=== PATIENT | male | born 1935 | race Caucasian/White ===

== ENCOUNTER → 2023-05-06 11:01 | Outpatient (REF) | payer MEDICARE, OTHER, SELFPAY | LOC: RAD 11:01 | PROVIDERS: ATTENDING PHYSICIAN Family Medicine | DX: R06.09 Other forms of dyspnea (principal); R07.89 Other chest pain | CPT/HCPCS: 71046 ==

== ENCOUNTER 2023-07-07 01:27 | Emergency (ER) | payer MEDICARE, OTHER, SELFPAY ==
[2023-07-07] VITALS (11 sets, daily range): BP systolic 115–176; BP diastolic 53–82; BMI 26.9
--- NOTE | 2023-07-07 01:45 | ED.GENMED ---
History of Present Illness
<ANIYAH Travis - Last Filed: 07/07/23 18:04>
General
Chief Complaint: Chest Pain
Source: patient
Exam Limitations: none
Time Seen by Provider: 07/07/23 01:33
Travel History
Have you had any contact with someone who has COVID-19?: No
Do you have any symptoms of coronavirus? Fever > 100 degrees, chills, cough, shortness of breath, sore throat, loss of taste or smell, muscle aches, or headache?: No
History of Present Illness
History of Present Illness:
This is a 88 year old male that comes in with c/o chest pain. State that he has had this constant pain in the middle of his chest. States that if he is laying still it is less and when he moves the pain gets worse. States that it started with
pressure in the ears and into his neck. States that it went into his left shoulder. States that he was not sure if it was form his haling or lifting things. States that he saw Dr. Johnston last week. States that on Friday night around 10pm he did take
a nitro but it did not make any different in his pain. States that he felt it got worse. States that it comes and goes and right not the pain is 3/10. States that he felt SOB with the pain and has pressure behind his ears. Denies any fever, chills,
abd pain, nausea, vomiting, diarrhea, dizziness, urinary burning.
Past History
<ANIYAH Travis - Last Filed: 07/07/23 18:04>
Past History
ED Past Medical History: Arrthythmia (Atrial fib), HTN and Hypercholesterolemia
ED Past Surgical History: Orthopedic (Left shoulder surgery) and Other (Corneal transplant, )
Social History
Tobacco: Non-smoker
Alcohol: Occasional (5 out of 7 days a week 1/2 glass of wine)
Drug: None
Personal:
Living: with family
Review of Systems
<ANIYAH Travis - Last Filed: 07/07/23 18:04>
Review of Systems
All Other Systems: ROS reviewed and negative except as documented in HPI and ROS
Constitutional: Reports no symptoms; Denies fever or chills
EENT: Reports no symptoms
Respiratory: Reports trouble breathing; Denies cough
Cardiac: Reports chest pain
ABD/GI: Reports no symptoms; Denies abdominal pain, nausea, vomiting or diarrhea
: Reports no symptoms; Denies dysuria or urgency
Musculoskeletal: Reports no symptoms
Skin: Reports no symptoms
Neurological: Reports other (pressure behind the ears); Denies dizzy
Psychiatric: Reports no symptoms
Phy Exam
<ANIYAH Travis - Last Filed: 07/07/23 18:04>
General Physical Exam
General Presentation: no apparent distress
General age: appears stated age
General Skin: warm and dry
General Habitus: elderly
General Mental: alert
General Hydration: appears well hydrated
ENT Exam
ENT Exam: TM's normal, pharynx normal and neck supple
Eye Exam
Eye Exam: EOMI
Cardiovascular Exam
Cardiovascular Exam: regular rate/rhythm, normal peripheral pulses and other (Murmur)
Pulmonary Exam
Pulmonary Exam: lungs clear, no respiratory distress, no rales, chest non tender, no crackles, no rhonchi, no wheezing and no cough
Gastrointestinal Exam
Gastrointestinal Exam: normal bowel sounds, non tender, soft, no organomegaly, no pulsatile mass and non distended
Musculoskeletal Exam
Musculoskeletal Exam: full ROM and edema (ankles nonpitting)
Skin Exam
Skin Exam: normal color, warm/dry, no rash and no petechia
Psychiatric Exam
Psychiatric Exam: normal mood/affect
Scores
<ANIYAH Travis - Last Filed: 07/07/23 18:04>
Heart Score for Chest Pain Patients
STEMI patient?: No
History: Slightly or Non-Suspicious
ECG: Normal
Age: >/= 65 years
Risk Factors: 1 or 2 Risk Factors
Troponin: </= Normal Limit
Heart Score for Chest Pain Patients: 3
Heart Score Risk: 2.5% MACE over next 6 weeks
Course
<ANIYAH Travis - Last Filed: 07/07/23 18:04>
Orders/Labs/Results
Orders:
Orders
07/07/23 01:31
Electrocardiogram (*1) Urgent
Reason for Study: Chest Pain
EKG- Treatment ONCE
07/07/23 01:44
Pantoprazole [Protonix IV] 40 mg IV NOW STA
CR Chest - 2 Views Urgent
Comment:
Reason For Exam: Chest pain
07/07/23 02:03
CMP [Comprehensive Metabolic Panel] Urgent
Complete Blood Count/With Diff Urgent
Troponin I Urgent
07/07/23 02:27
Mag Hydrox/Al Hydrox/Simeth [Maalox] 30 ml Phenobarb/Hyoscy/Atropine/Scop [] 10 ml Viscous Lidocaine 2% [Xylocaine Viscous Cup] 10 ml PO NOW
07/07/23 02:35
Mag Hydrox/Al Hydrox/Simeth [Maalox] 30 ml .ROUTE .STK-MED ONE
Phenobarb/Hyoscy/Atropine/Scop [] 10 ml .ROUTE .STK-MED ONE
Viscous Lidocaine 2% [Xylocaine Viscous Cup] 15 ml .ROUTE .STK-MED ONE
07/07/23 02:46
EKG- Treatment ONCE
07/07/23 02:55
Acetaminophen [Tylenol] 1,000 mg PO NOW STA
07/07/23 05:00
Electrocardiogram (*1) Urgent
Reason for Study: Chest Pain
Other Reason for Exam: Repeat with Tropnin
07/07/23 05:13
Troponin I Urgent
Abnormal Lab Results
07/07/23
02:03
RBC 4.61 L 10^6/uL
(4.70-6.10)
MPV 11.1 H fL
(7.4-10.4)
Absolute Neuts (auto) 7.3 H 10^3/uL
(1.4-6.5)
Absolute Monos (auto) 1.9 H 10^3/uL
(0.1-0.6)
Lymphocytes % 12.4 L %
(20.5-51.1)
Monocytes % 18.0 H %
(1.7-9.3)
Glucose 121 H mg/dl
(70-99)
07/07/23 02:03
07/07/23 02:03
Glucose nonfasting, Troponin <0.012
second Troponin <0.012
Vital Signs
Initial and Last Documented VS:
Initial Vital Signs
Pulse Resp Pulse Ox
100 24 96
07/07/23 01:35 07/07/23 01:35 07/07/23 01:35
Last Documented Vital Signs
Temp Pulse Resp BP Pulse Ox
99.4 F 61 17 121/56 97
07/07/23 01:48 07/07/23 06:30 07/07/23 06:30 07/07/23 06:30 07/07/23 06:30
<Denton Lee, - Last Filed: 07/07/23 06:24>
Orders/Labs/Results
Orders:
Orders
07/07/23 01:31
Electrocardiogram (*1) Urgent
Reason for Study: Chest Pain
EKG- Treatment ONCE
07/07/23 01:44
Pantoprazole [Protonix IV] 40 mg IV NOW STA
CR Chest - 2 Views Urgent
Comment:
Reason For Exam: Chest pain
07/07/23 02:03
CMP [Comprehensive Metabolic Panel] Urgent
Complete Blood Count/With Diff Urgent
Troponin I Urgent
07/07/23 02:27
Mag Hydrox/Al Hydrox/Simeth [Maalox] 30 ml Phenobarb/Hyoscy/Atropine/Scop [] 10 ml Viscous Lidocaine 2% [Xylocaine Viscous Cup] 10 ml PO NOW
07/07/23 02:35
Mag Hydrox/Al Hydrox/Simeth [Maalox] 30 ml .ROUTE .STK-MED ONE
Phenobarb/Hyoscy/Atropine/Scop [] 10 ml .ROUTE .STK-MED ONE
Viscous Lidocaine 2% [Xylocaine Viscous Cup] 15 ml .ROUTE .STK-MED ONE
07/07/23 02:46
EKG- Treatment ONCE
07/07/23 02:55
Acetaminophen [Tylenol] 1,000 mg PO NOW STA
07/07/23 05:00
Electrocardiogram (*1) Urgent
Reason for Study: Chest Pain
Other Reason for Exam: Repeat with Tropnin
07/07/23 05:13
Troponin I Urgent
Abnormal Lab Results
07/07/23
02:03
RBC 4.61 L 10^6/uL
(4.70-6.10)
MPV 11.1 H fL
(7.4-10.4)
Absolute Neuts (auto) 7.3 H 10^3/uL
(1.4-6.5)
Absolute Monos (auto) 1.9 H 10^3/uL
(0.1-0.6)
Lymphocytes % 12.4 L %
(20.5-51.1)
Monocytes % 18.0 H %
(1.7-9.3)
Glucose 121 H mg/dl
(70-99)
07/07/23 02:03
07/07/23 02:03
Vital Signs
Initial and Last Documented VS:
Initial Vital Signs
Pulse Resp Pulse Ox
100 24 96
07/07/23 01:35 07/07/23 01:35 07/07/23 01:35
Last Documented Vital Signs
Temp Pulse Resp BP Pulse Ox
99.4 F 61 17 121/56 97
07/07/23 01:48 07/07/23 06:30 07/07/23 06:30 07/07/23 06:30 07/07/23 06:30
<ANIYAH Travis - Last Filed: 07/07/23 18:04>
MDM/Problems Addressed
Differential Diagnosis Includes:
GERD ,Coronary syndrome, Musculoskeletal pain
MDM/Problems Addressed:
This is a 88 year old male that comes in with c/o mid sternal chest pain. States that his pain started at 6:30-7pm. States that his pain gets worse when he moves and is less when he is still. States that he had pressure in the inner ear that went
into the neck and left shoulder. States that he took a nitro at 10pm and this did not help his pain but felt that is made it worse.
Will check labs, chest x-ray and given IV Protonix.
Back into see patient. Explained that his Troponin and chest X-ray are aisha. Patient states that the pain increases with movement and that nothing he has had has helped the discomfort. States that he moved a very heavy generator. Will give patient
Tylenol as on Eliquis. Repeat Troponin at 5am.
Chronic conditions affecting care:
NA
Acute Exacerbation and/or Progression of Chronic Illness:
NA
<ANIYAH Travis - Last Filed: 07/07/23 18:04>
*Radiology
Radiology exam reviewed: preliminary read by ED provider (Chest- Negative for active disease)
*Pulse Oximetry
Patient hypoxic: no
*EKG
Interpreted by ED Provider?: Yes
Heart Rate: 103
Rate: tachycardiac
Rhythm: sinus
[place]: normal axis
QRS Pattern: normal QRS
Ischemia: no ischemia
*Clinical Administrative Coordinator Interpretation
Rate: tachycardiac
Heart Rate: 101
Rhythm: sinus tachycardia
*Critical Care Note
Total Time (30-74mins, 75-104mins- exclusive of procedures): Not Applicable
ED Attending Note
<ANIYAH Travis - Last Filed: 07/07/23 18:04>
-
Portions of this chart may have been created with voice recognition software.� Occasional wrong word or��sound alike� substitutions may have occurred due to the inherent limitations of voice recognition software.
<Denton Lee DO - Last Filed: 07/07/23 06:24>
ED Attending Note
Patient seen and examined by attending physician: Yes
I performed the substantive portion of visit, reviewed & personally made and approve the management plan that is documented in note by myself or LEO.: Yes
ED Attending Note:
88-year-old male seen in conjunction with Deanna the nurse practitioner. He is resting comfortably on the bed. He has had no chest pain since he was signed out to me. 2 troponins negative. EKG normal. He does follow-up with Dr. Johnston. Patient
to be discharged. He has no further questions at this time. Patient was seen in conjunction with the nurse practitioner. I have reviewed and agree with the history and treatment plan presented. On my independent physical exam, patient is awake,
alert, and oriented x3
Discharge Plan
Departure
Patient Disposition: Home (Routine Discharge)
Date of Disposition: 07/07/23
Time of Disposition: 06:24
Patient with high blood pressure during this ER visit?: Yes
Condition: Good
Covid-19: Not Applicable
Discharge Problem:
Chest pain
Instructions: Chest Pain CBC Follow Up
Prescriptions:
No Action
aspirin 81 MG tablet,delayed release (DR/EC)
81 mg PO QPM
tamsulosin 0.4 MG capsule
0.4 mg PO QPM
latanoprost 1 DROP drops
1 drp BOTH EYES HS
atorvastatin 40 MG tablet
40 mg PO QPM
Patient Comments:
sildenafil [Viagra] 100 MG tablet
100 mg PO DAILYPRN PRN (Reason: DIRECTED)
metronidazole [MetroCream] 1 APPLIC cream
1 applic topical BIDPRN PRN (Reason: ROSACEA)
lisinopril 5 MG tablet
5 mg PO QPM
Patient Comments:
ketoconazole 1 APPLIC cream
1 applic TP DAILY
finasteride 5 MG tablet
5 mg PO QPM
Patient Comments:
TAKE 1 TABLET EVERY DAY
brimonidine-timolol [Combigan] 1 DROP drops
1 drp BOTH EYES BID
psyllium husk (aspartame) [Metamucil Fiber Singles] 1 PACKET powder in packet
1 packet PO DAILY
loteprednol etabonate [Lotemax] 5 GM drops,gel
1 drp BOTH EYES DAILY
[place]-3 Fatty Acids/Fish Oil
2 - 4 capsules PO DAILY
apixaban [Eliquis] 5 MG tablet
5 mg PO BID Qty: 30 0RF
Interventions
Interventions:
*Risk Screen - Suicide Last Done: 07/07/23 01:57
*General Assessment Last Done: 07/07/23 01:57
*Neglect/Abuse Screening Last Done: 07/07/23 01:57
ED- Fall Risk Assessment Last Done: 07/07/23 01:57
*ED COVID-19 Vaccine History Last Done: 07/07/23 01:57
*Nursing Disposition Last Done: 07/07/23 07:02
ED- Cardiac Assessment Last Done: 07/07/23 01:57
Discharge Date and Time
Discharge Date/Time: 07/07/23 07:03
Print Language: ALBANIAN
[2023-07-07 02:13] LABS: % Basophils 0.3 % (0-2); % Eosinophils 0.2 % (0-6); % Immature Granulocytes 0.3 % (0-0.5); % Lymphocytes 12.4 % (20.5-51.1); % Neutrophils 68.8 % (42.2-75.2); Absolute Lymphocytes 1.3 10^3/uL (1.2-3.4); Absolute Monocytes 1.9 10^3/uL (0.1-0.6); Absolute Neutrophils 7.3 10^3/uL (1.4-6.5); Hematocrit 39.9 % (39.0-52.0); Hemoglobin 13.7 g/dL (13.0-18.0); Mean Corp Hgb Conc. 34.3 g/dL (33.0-37.0); Mean Corpuscular Hgb 29.7 pg (27.0-31.0); Mean Corpuscular Volume 86.6 fL (80.0-94.0); Mean Platelet Volume 11.1 fL (7.4-10.4); Nucleated Red Blood Cells % 0 % (-); Platelet Count 182 10^3/uL (130-400); Red Blood Cell Count 4.61 10^6/uL (4.70-6.10); Red Cell Dist. Width 13.4 % (11.5-14.5); White Blood Cell Count 10.5 10^3/uL (4.8-10.8)
[2023-07-07 02:27] LABS: ALT (SGPT) 20 U/L (0-50); AST (SGOT) 30 U/L (17-59); Albumin 4.4 g/dl (3.5-5.0); Alkaline Phosphatase 105 U/L (38-126); Blood Urea Nitrogen 19 mg/dl (9-20); Calcium 9.2 mg/dl (8.4-10.2); Carbon Dioxide 27 mmol/L (22-30); Chloride 101 mmol/L (98-107); Estimated Creatinine Clearance 60 ml/min; Glucose 121 mg/dl (70-99); Potassium 4.1 mmol/L (3.5-5.1); Sodium 139 mmol/L (135-145); Total Bilirubin 0.9 mg/dl (0.2-1.3); Total Protein 7.5 g/dl (6.3-8.2); eGFR > 60.00
[2023-07-07] MEDS: PROTONIX IV 40 MG IV (02:28)
[2023-07-07 02:38] LABS: Troponin I < 0.012 ng/ml
[2023-07-07] MEDS: MAALOX 50 PO (02:38)
[2023-07-07] MEDS: TYLENOL 1000 MG PO (03:35)
[2023-07-07 05:44] LABS: Troponin I < 0.012 ng/ml
== END 2023-07-07 07:03 | disposition home or self-care (01) ==
LOC: EMR 01:27
PROVIDERS: Clinical Nurse Specialist Family Health; EMERGENCY PHYSICIAN Student in an Organized Health Care Education/Training Program; FAMILY PHYSICIAN Family Medicine
DX: R07.89 Other chest pain (principal); I48.91 Unspecified atrial fibrillation; I10 Essential (primary) hypertension; E78.00 Pure hypercholesterolemia, unspecified; Z79.01 Long term (current) use of anticoagulants
CPT/HCPCS: 99283; 96374; 71046; 80053; 84484; 85025; 93005

== ENCOUNTER → 2023-07-21 11:13 | Outpatient (REF) | payer MEDICARE, OTHER, SELFPAY | LOC: RAD 11:13 | PROVIDERS: ATTENDING PHYSICIAN Physician Assistant | DX: R05.1 Acute cough (principal) | CPT/HCPCS: 71046 ==

== ENCOUNTER 2023-07-26 11:38 | Inpatient (IN) | payer MEDICARE, OTHER, SELFPAY ==
[2023-07-26] VITALS (28 sets, daily range): BP systolic 101–152; BP diastolic 53–83; BMI 27.9; BMI 27.1
--- NOTE | 2023-07-26 07:07 | ED.GENMED ---
History of Present Illness
<ANIYAH Guillen - Last Filed: 07/28/23 17:00>
General
Chief Complaint: Swelling
Source: patient
Time Seen by Provider: 07/26/23 07:07
Nursing documentation reviewed up to this point in time: agreed with
Travel History
Have you had any contact with someone who has COVID-19?: No
Do you have any symptoms of coronavirus? Fever > 100 degrees, chills, cough, shortness of breath, sore throat, loss of taste or smell, muscle aches, or headache?: No
History of Present Illness
History of Present Illness:
Patient is an 88-year-old male with history of A-fib on Eliquis hypertension hyperlipidemia presents to the ER for evaluation patient reports for the past several weeks he has had lower extremity swelling and shortness of breath which has gotten
worse over the past several days. He could not sleep last night. He also complains of generalized joint pain over the past several weeks which is gotten progressively worse. He denies any actual fevers but has been taking Tylenol and will wake up
in a sweat. He reports he can barely walk because of the joint pain sometimes he cannot lift his arms. Presently he has swelling of his left index finger with slight redness. He denies any associated chest pain, rash. He has had a cough. He has
been taking Tylenol for pain.
He is on Eliquis and has not missed a dose.
Patient was seen here in the ER 07/07/2023 for chest pain with movement.
Past History
<ANIYAH Guillen - Last Filed: 07/28/23 17:00>
Past History
ED Past Medical History: Arrthythmia (Atrial fib), HTN and Hypercholesterolemia
ED Past Surgical History: Orthopedic (Left shoulder surgery) and Other (Corneal transplant, )
Social History
Tobacco: Non-smoker
Alcohol: Occasional (5 out of 7 days a week 1/2 glass of wine)
Drug: None
Personal:
Living: with family
Review of Systems
<ANIYAH Guillen - Last Filed: 07/28/23 17:00>
Review of Systems
Allergies reviewed?: Yes
All Other Systems: ROS reviewed and negative except as documented in HPI and ROS
Constitutional: Reports chills
EENT: Reports no symptoms
Respiratory: Reports cough and trouble breathing
Cardiac: Denies chest pain, palpitations or syncope
ABD/GI: Reports no symptoms
: Reports no symptoms
Musculoskeletal: Reports other (joint pain )
Skin: Reports no symptoms
Neurological: Reports no symptoms
Psychiatric: Reports no symptoms
Phy Exam
<ANIYAH Guillen - Last Filed: 07/28/23 17:00>
General Physical Exam
General Presentation: no apparent distress
General age: appears stated age
General Skin: warm and dry
General Habitus: elderly
General Mental: alert
General Hydration: appears well hydrated
ENT Exam
ENT Exam: EOMI, neck supple and other
Eye Exam
Eye Exam: PERRL, EOMI and other (chronic blepharitis (redness to upper/lower eyelids ) )
Cardiovascular Exam
Cardiovascular Exam: tachycardia
Pulmonary Exam
Pulmonary Exam: lungs clear and no respiratory distress
Neurological Exam
Neurological Exam: alert and oriented x3
Musculoskeletal Exam
Musculoskeletal Exam: other ( b/l l/e swelling pitting right slightly greater then left; left index finger is swollen)
Skin Exam
Skin Exam: normal color and warm/dry
Psychiatric Exam
Psychiatric Exam: normal mood/affect
Scores
<ANIYAH Guillen - Last Filed: 07/28/23 17:00>
Heart Failure Risk
Heart Failure Risk Score: Not Applicable
Course
<Tammy Chowdhury, ANIYAH - Last Filed: 07/28/23 17:00>
Orders/Labs/Results
Orders:
Orders
07/26/23 07:04
Electrocardiogram (*1) Urgent
Reason for Study: Chest Pain
EKG- Treatment ONCE
CXR2 [CR Chest - 2 Views ] Urgent
Comment:
Reason For Exam: cough with SOB
07/26/23 07:08
C-Reactive Protein Urgent
Comment: ADD ON
COVID-19 Antigen Urgent
Source: Nasal Swab
Complete Blood Count/With Diff Urgent
Comprehensive Metabolic Panel Urgent
Erythrocyte Sed Rate Urgent
Comment: ADD ON
Lyme Progressive Urgent
Comment: ADD ON
NT-proBNP Urgent
Troponin I Urgent
Influenza A+B Rapid Molecular Urgent
CASANDRA Source: Nasal Swab
Specimen Description:
07/26/23 07:18
Add On- LAB Urgent
Tests Added?: crp,sed rate, lyme
07/26/23 08:12
Echo 2D MMode Color/Doppler Urgent
Reason for Study: short of breath, new dilated cardiomyopathy
07/26/23 08:20
Azithromycin 500 mg/250 ml [Zithromax Infusion] 500 mg in 250 ml IV NOW
CefTRIAXone [Rocephin] 1,000 mg IV NOW STA
07/26/23 08:22
Lactic Acid Q4H
Comment: CANCEL 2nd LACTIC ACID IF 1st LACTIC ACID IS LESS THAN 2
Blood Culture Q30M
CASANDRA Source: Blood/Venous
Specimen Description:
Blood Culture Q30M
CASANDRA Source: Blood/Venous
Specimen Description:
07/26/23 10:14
[employer] Cytology Routine
Date Specimen was Collected: 07/26/23
Time Specimen was Collected: 10:15
Source: Pericardial Fluid
Clinical Impression: echo
07/26/23 10:20
Acid Fast Culture & Smear Routine
CASANDRA Source: Pericardial Fluid
Specimen Description:
Date Specimen was Collected: 07/26/23
Time Specimen was Collected: 10:13
Fluid Culture with Gram Stain Routine
CASANDRA Source: Pericardial Fluid
Specimen Description:
Date Specimen was Collected: 07/26/23
Time Specimen was Collected: 10:13
07/26/23 10:23
Heparin 1000 Units/500 ml [Heparin] 1,000 units in 500 ml .ROUTE .STK-MED
Heparin Sodium,Porcine/Ns/Pf [Heparin 2000 Units/1000 ml] 2,000 unit in 1,000 ml .ROUTE .STK-MED
Lidocaine HCl/Pf [Xylocaine-Mpf 1% Vial] 200 mg .ROUTE .STK-MED ONE
07/26/23 10:26
Body Fluid Cell Count Routine
What is the Body Fluid: pericardial fluid
Date Specimen was Collected: 07/26/23
Time Specimen was Collected: 10:23
Body Fluid Glucose Routine
Fluid Source: Other
Other Source: pericardial
Date Specimen was Collected: 07/26/23
Time Specimen was Collected: 10:23
Body Fluid Hematocrit Routine
What is the Body Fluid: pericardial fluid
Date Specimen was Collected: 07/26/23
Time Specimen was Collected: 10:23
Body Fluid LDH Routine
Fluid Source: Other
Other Source: pericardial
Date Specimen was Collected: 07/26/23
Time Specimen was Collected: 10:23
Body Fluid Protein Routine
Fluid Source: Other
Other Source: pericardial
Date Specimen was Collected: 07/26/23
Time Specimen was Collected: 10:23
Fungus Culture Routine
CASANDRA Source: Pericardial Fluid
Specimen Description:
Date Specimen was Collected: 07/26/23
Time Specimen was Collected: 10:23
Fungus Smear Routine
CASANDRA Source: Pericardial Fluid
Specimen Description:
Date Specimen was Collected: 07/26/23
Time Specimen was Collected: 10:23
07/26/23 10:33
Fentanyl Citrate/Pf [Sublimaze] 100 mcg .ROUTE .STK-MED ONE
Midazolam HCl [Versed] 2 mg .ROUTE .STK-MED ONE
07/26/23 10:41
Echo Follow-up Study Stat
Reason for Study: PERICARDIAL EFFUSION
Cardiology Consult: Black Craig
07/26/23 14:42
Blood Culture Routine
CASANDRA Source: Blood/Venous
Specimen Description:
Abnormal Lab Results
07/26/23
07:08
WBC 11.6 H 10^3/uL
(4.8-10.8)
RBC 3.79 L 10^6/uL
(4.70-6.10)
Hgb 11.2 L g/dL
(13.0-18.0)
Hct 33.7 L %
(39.0-52.0)
MPV 10.5 H fL
(7.4-10.4)
Abs Immat Gran (auto) 0.1 H 10^3/uL
(0-0.05)
Absolute Neuts (auto) 8.8 H 10^3/uL
(1.4-6.5)
Absolute Lymphs (auto) 0.9 L 10^3/uL
(1.2-3.4)
Absolute Monos (auto) 1.8 H 10^3/uL
(0.1-0.6)
Neutrophils % 75.7 H %
(42.2-75.2)
Lymphocytes % 7.6 L %
(20.5-51.1)
Monocytes % 15.7 H %
(1.7-9.3)
ESR 75 H mm/hour
(0-20)
Sodium 134 L mmol/L
(135-145)
Glucose 133 H mg/dl
(70-99)
Calcium 8.1 L mg/dl
(8.4-10.2)
AST 126 H U/L
(17-59)
ALT 153 H U/L
(0-50)
Alkaline Phosphatase 239 H U/L
(38-126)
C-Reactive Protein 167.90 H mg/L
(0.0-10.00)
Albumin 3.3 L g/dl
(3.5-5.0)
07/26/23 07:08
07/26/23 07:08
Vital Signs
Initial and Last Documented VS:
Initial Vital Signs
Temp Pulse Resp BP Pulse Ox
99.3 F 112 22 148/80 96
07/26/23 06:41 07/26/23 06:41 07/26/23 06:41 07/26/23 06:41 07/26/23 06:41
Last Documented Vital Signs
Temp Pulse Resp BP Pulse Ox
98.6 F 99 18 145/70 98
07/28/23 15:58 07/28/23 09:00 07/28/23 11:09 07/28/23 08:11 07/28/23 11:09
<Maik Nova, DO - Last Filed: 07/26/23 08:28>
Orders/Labs/Results
Orders:
Orders
07/26/23 07:04
Electrocardiogram (*1) Urgent
Reason for Study: Chest Pain
EKG- Treatment ONCE
CXR2 [CR Chest - 2 Views ] Urgent
Comment:
Reason For Exam: cough with SOB
07/26/23 07:08
C-Reactive Protein Urgent
Comment: ADD ON
COVID-19 Antigen Urgent
Source: Nasal Swab
Complete Blood Count/With Diff Urgent
Comprehensive Metabolic Panel Urgent
Erythrocyte Sed Rate Urgent
Comment: ADD ON
Lyme Progressive Urgent
Comment: ADD ON
NT-proBNP Urgent
Troponin I Urgent
Influenza A+B Rapid Molecular Urgent
CASANDRA Source: Nasal Swab
Specimen Description:
07/26/23 07:18
Add On- LAB Urgent
Tests Added?: crp,sed rate, lyme
07/26/23 08:12
Echo 2D MMode Color/Doppler Urgent
Reason for Study: short of breath, new dilated cardiomyopathy
07/26/23 08:20
Azithromycin 500 mg/250 ml [Zithromax Infusion] 500 mg in 250 ml IV NOW
CefTRIAXone [Rocephin] 1,000 mg IV NOW STA
07/26/23 08:22
Lactic Acid Q4H
Comment: CANCEL 2nd LACTIC ACID IF 1st LACTIC ACID IS LESS THAN 2
Blood Culture Q30M
CASANDRA Source: Blood/Venous
Specimen Description:
Blood Culture Q30M
CASANDRA Source: Blood/Venous
Specimen Description:
07/26/23 10:14
[employer] Cytology Routine
Date Specimen was Collected: 07/26/23
Time Specimen was Collected: 10:15
Source: Pericardial Fluid
Clinical Impression: echo
07/26/23 10:20
Acid Fast Culture & Smear Routine
CASANDRA Source: Pericardial Fluid
Specimen Description:
Date Specimen was Collected: 07/26/23
Time Specimen was Collected: 10:13
Fluid Culture with Gram Stain Routine
CASANDRA Source: Pericardial Fluid
Specimen Description:
Date Specimen was Collected: 07/26/23
Time Specimen was Collected: 10:13
07/26/23 10:23
Heparin 1000 Units/500 ml [Heparin] 1,000 units in 500 ml .ROUTE .STK-MED
Heparin Sodium,Porcine/Ns/Pf [Heparin 2000 Units/1000 ml] 2,000 unit in 1,000 ml .ROUTE .STK-MED
Lidocaine HCl/Pf [Xylocaine-Mpf 1% Vial] 200 mg .ROUTE .STK-MED ONE
07/26/23 10:26
Body Fluid Cell Count Routine
What is the Body Fluid: pericardial fluid
Date Specimen was Collected: 07/26/23
Time Specimen was Collected: 10:23
Body Fluid Glucose Routine
Fluid Source: Other
Other Source: pericardial
Date Specimen was Collected: 07/26/23
Time Specimen was Collected: 10:23
Body Fluid Hematocrit Routine
What is the Body Fluid: pericardial fluid
Date Specimen was Collected: 07/26/23
Time Specimen was Collected: 10:23
Body Fluid LDH Routine
Fluid Source: Other
Other Source: pericardial
Date Specimen was Collected: 07/26/23
Time Specimen was Collected: 10:23
Body Fluid Protein Routine
Fluid Source: Other
Other Source: pericardial
Date Specimen was Collected: 07/26/23
Time Specimen was Collected: 10:23
Fungus Culture Routine
CASANDRA Source: Pericardial Fluid
Specimen Description:
Date Specimen was Collected: 07/26/23
Time Specimen was Collected: 10:23
Fungus Smear Routine
CASANDRA Source: Pericardial Fluid
Specimen Description:
Date Specimen was Collected: 07/26/23
Time Specimen was Collected: 10:23
07/26/23 10:33
Fentanyl Citrate/Pf [Sublimaze] 100 mcg .ROUTE .STK-MED ONE
Midazolam HCl [Versed] 2 mg .ROUTE .STK-MED ONE
07/26/23 10:41
Echo Follow-up Study Stat
Reason for Study: PERICARDIAL EFFUSION
Cardiology Consult: Black Craig
07/26/23 14:42
Blood Culture Routine
CASANDRA Source: Blood/Venous
Specimen Description:
Abnormal Lab Results
07/26/23
07:08
WBC 11.6 H 10^3/uL
(4.8-10.8)
RBC 3.79 L 10^6/uL
(4.70-6.10)
Hgb 11.2 L g/dL
(13.0-18.0)
Hct 33.7 L %
(39.0-52.0)
MPV 10.5 H fL
(7.4-10.4)
Abs Immat Gran (auto) 0.1 H 10^3/uL
(0-0.05)
Absolute Neuts (auto) 8.8 H 10^3/uL
(1.4-6.5)
Absolute Lymphs (auto) 0.9 L 10^3/uL
(1.2-3.4)
Absolute Monos (auto) 1.8 H 10^3/uL
(0.1-0.6)
Neutrophils % 75.7 H %
(42.2-75.2)
Lymphocytes % 7.6 L %
(20.5-51.1)
Monocytes % 15.7 H %
(1.7-9.3)
ESR 75 H mm/hour
(0-20)
Sodium 134 L mmol/L
(135-145)
Glucose 133 H mg/dl
(70-99)
Calcium 8.1 L mg/dl
(8.4-10.2)
AST 126 H U/L
(17-59)
ALT 153 H U/L
(0-50)
Alkaline Phosphatase 239 H U/L
(38-126)
C-Reactive Protein 167.90 H mg/L
(0.0-10.00)
Albumin 3.3 L g/dl
(3.5-5.0)
07/26/23 07:08
07/26/23 07:08
Vital Signs
Initial and Last Documented VS:
Initial Vital Signs
Temp Pulse Resp BP Pulse Ox
99.3 F 112 22 148/80 96
07/26/23 06:41 07/26/23 06:41 07/26/23 06:41 07/26/23 06:41 07/26/23 06:41
Last Documented Vital Signs
Temp Pulse Resp BP Pulse Ox
98.6 F 99 18 145/70 98
07/28/23 15:58 07/28/23 09:00 07/28/23 11:09 07/28/23 08:11 07/28/23 11:09
<ANIYAH Guillen - Last Filed: 07/28/23 17:00>
MDM/Problems Addressed
Differential Diagnosis Includes:
not limited to: CHF viral syndrome, pneumonia
MDM/Problems Addressed:
Patient presented for complaints of generalized joint pain, for the past several weeks getting worse along with worsening shortness of breath and lower extremity swelling. He has not had any fevers at home but has had chills. He was seen here
July 06 for chest pain and that was found to be muscular and because of his generalized joint pain he has been taking 3 g of Tylenol every 8 hours. He still complains of joint pain. He presented to the ER today because of worsening symptoms over
the past several days including both shortness of breath and generalized joint pain electrically swelling. He has had cough.
On arrival he is in no acute distress. Patient does feel short of breath however he is in no acute distress he is tachycardic however pulse ox between 93 to 94%. Lungs cta. Patient is afebrile his white count is minimally elevated 11.6 with normal
platelets. Sodium 134 normal kidney function patient's LFTs are elevated however bilirubin is normal this is new from prior ED visit July 06.
With joint pain Lyme test was ordered. Patient was found to be COVID-negative. Chest x-ray reviewed with ED attending does show a new moderate size left lower lobe airspace suggesting pneumonia along with pleural effusion and moderate
cardiomegaly. Pt was eval by ED attending who notified cardiology of pt's new effusion/Cardiomegaly . d/c echo with cardiology .
<ANIYAH Guillen - Last Filed: 07/28/23 17:00>
*Radiology
Radiology exam reviewed: radiology read reviewed
*Pulse Oximetry
Patient hypoxic: no
*EKG
Interpreted by ED Provider?: Yes
Heart Rate: 112
Rate: tachycardiac
Rhythm: sinus tachycardia
Ischemia: non-specific ST changes
*Critical Care Note
Total Time (30-74mins, 75-104mins- exclusive of procedures): Not Applicable
<Maik Nova DO - Last Filed: 07/26/23 08:28>
Patient Management
Discussion with other providers: Hospitalist and Yard Coordinator (Dr. Alvarez, cardiology)
ED Attending Note
<ANIYAH Guillen - Last Filed: 07/28/23 17:00>
-
Portions of this chart may have been created with voice recognition software.� Occasional wrong word or��sound alike� substitutions may have occurred due to the inherent limitations of voice recognition software.
<Maik Nova DO - Last Filed: 07/26/23 08:28>
ED Attending Note
Patient seen and examined by attending physician: Yes
ED Attending Note:
I have reviewed and agree with history and treatment plan by Tammy Chowdhury. My exam revealed 88-year-old male with tachycardia,, clear lungs, bilateral tibial edema, with 4+ distal pulses in all extremities. Chest x-ray concerning for new onset
and increasing cardiomegaly with left pleural effusion versus consolidation. Discussed with Dr. Alvarez, cardiology, who is currently seeing patient in ED. Echocardiogram ordered with cardiology. Will treat for pneumonia and admit to hospitalist
for further evaluation.
Discharge Plan
Departure
Patient Disposition: Admit
Date of Disposition: 07/26/23
Time of Disposition: 08:28
Admit to: ICU
Admit to doctor: hospitalist
Presentation/result/management discussed w/ accepting MD/DO: Hospitalist
Patient with high blood pressure during this ER visit?: Yes
Condition: Fair
Covid-19: Negative COVID-19
Discharge Problem:
Acute pericardial effusion, Pneumonia, Arthralgia, Elevated LFTs
Interventions
Interventions:
*General Assessment Last Done: 07/26/23 07:17
*Neglect/Abuse Screening Last Done: 07/26/23 07:17
ED- Fall Risk Assessment Last Done: 07/26/23 07:17
*Nursing Disposition Last Done: 07/26/23 10:19
ED- Cardiac Assessment Last Done: 07/26/23 07:17
ED- Pulmonary Assessment Last Done: 07/26/23 07:17
ED-Skin Assessment Last Done: 07/26/23 07:17
Discharge Date and Time
Discharge Date/Time: 07/26/23 10:19
[2023-07-26 07:19] LABS: % Basophils 0.3 % (0-2); % Eosinophils 0.2 % (0-6); % Immature Granulocytes 0.5 % (0-0.5); % Lymphocytes 7.6 % (20.5-51.1); % Monocytes 15.7 % (1.7-9.3); % Neutrophils 75.7 % (42.2-75.2); Absolute Immature Granulocytes 0.1 10^3/uL (0-0.05); Absolute Lymphocytes 0.9 10^3/uL (1.2-3.4); Absolute Monocytes 1.8 10^3/uL (0.1-0.6); Absolute Neutrophils 8.8 10^3/uL (1.4-6.5); Hematocrit 33.7 % (39.0-52.0); Hemoglobin 11.2 g/dL (13.0-18.0); Mean Corp Hgb Conc. 33.2 g/dL (33.0-37.0); Mean Corpuscular Hgb 29.6 pg (27.0-31.0); Mean Corpuscular Volume 88.9 fL (80.0-94.0); Mean Platelet Volume 10.5 fL (7.4-10.4); Nucleated Red Blood Cells % 0 % (-); Platelet Count 271 10^3/uL (130-400); Red Blood Cell Count 3.79 10^6/uL (4.70-6.10); Red Cell Dist. Width 13.5 % (11.5-14.5); White Blood Cell Count 11.6 10^3/uL (4.8-10.8)
[2023-07-26 07:29] LABS: ALT (SGPT) 153 U/L (0-50); AST (SGOT) 126 U/L (17-59); Albumin 3.3 g/dl (3.5-5.0); Alkaline Phosphatase 239 U/L (38-126); Blood Urea Nitrogen 19 mg/dl (9-20); Calcium 8.1 mg/dl (8.4-10.2); Carbon Dioxide 29 mmol/L (22-30); Chloride 101 mmol/L (98-107); Estimated Creatinine Clearance -5 ml/min; Glucose 133 mg/dl (70-99); Potassium 3.7 mmol/L (3.5-5.1); Sodium 134 mmol/L (135-145); Total Bilirubin 0.8 mg/dl (0.2-1.3); Total Protein 6.5 g/dl (6.3-8.2); eGFR > 60.00
[2023-07-26 07:30] LABS: COVID-19 Antigen Negative (Negative)
[2023-07-26 07:40] LABS: NT-proBNP 953 pg/ml; Troponin I < 0.012 ng/ml
--- NOTE | 2023-07-26 07:45 | EDRN ---
this RN noticed that the pts Sp02 dropped from 96% to 92% on RA, this RN notified Tammy Chowdhury NP and this RN placed the pt on 2L NC, Sp02 came up to 94%, will continue to monitor the pt closely
[2023-07-26 08:01] LABS: Erythrocyte Sed Rate 75 mm/hour (0-20)
[2023-07-26] MEDS: ZITHROMAX INFUSION 250 IV (08:29)
[2023-07-26] MEDS: ROCEPHIN 1000 MG IV (08:30)
[2023-07-26 09:03] LABS: Lactic Acid 0.9 mmol/L (0.7-2.0)
--- NOTE | 2023-07-26 09:15 | EDRN ---
the pt pressed the call lubin and this RN entered the pts room, the pt stated to this RN that he needed to use the bathroom, the pt states that it hurt'all over his body to walk', this RN offered the pt a urinal however the pt stated to this RN, 'I
don't want to use the urinal however i don't think i can make it to the bathroom, is there any way that you can find me a commode so i can go to the bathroom' this RN brought a commode into the pts room, the pt was able to stand and pivot onto the
commode with this RN's assistance, the pt is now resting in stretcher in the lowest position, side rails up x2, call lubin within reach, HOB elevated, will continue to monitor the pt closely
--- NOTE | 2023-07-26 10:06 | EDRN ---
the pt is currently resting in stretcher in the lowest position, side rails up x2, call lubin within reach, HOB elevated, Sinus Tachycardic in the 110's, palpable pulses, b/l lower extremity edema, the pt is currently on 2L NC Sp02 94%, Dr. Craig
currently at the pts bedside speaking with the pt and the pts
--- NOTE | 2023-07-26 10:14 | EDRN ---
Dr. Craig currently at the pts bedside obtaining consent
--- NOTE | 2023-07-26 10:18 | EDRN ---
Cristal ZHAO from collaborating supervising physician called and verbal report was given
--- NOTE | 2023-07-26 11:02 | CON.CAR ---
Addendum entered and electronically signed by Itz Alvarez MD 07/27/23 09:39:
Patient was seen and evaluated personally. I agree with the note, physical examination and plan of care as documented below.
Patient was evaluated in the ER. He was noted to be in cardiogenic stress. An emergent bedside echo was done that showed pericardial effusion. A proper echo was done to evaluate the possibility of tamponade. Echo done in the ER confirmed large
pericardial effusion along with early signs of tamponade even though the blood pressure was stable. Patient was taken emergently to the [facility] and Dr. Oliveira was called for pericardial drain placement.
Anticoagulation is on hold at this time. Patient was on Eliquis 5 mg twice a day. Etiology of pericardial effusion is unclear and could be spontaneous bleed into the pericardium exasperated by the Eliquis on board.
Original Note:
Consultation
Consultation Request
Date/Time Consultation Requested: 07/25/2026 09:30
Date/Time Consultation Performed: 07/26/2023 09:50
Requesting Provider: Dr. Nova
Performing Provider: ANIYAH Iniguez for Dr. Alvarez
Medical History
-
Chief Complaint: Shortness of breath
History of Present Illness:
Terrell Purcell is a 88-year-old male (known to Dr. Johnston, his primary softball coach), with paroxysmal atrial fibrillation (on apixaban), chronic stable angina, hypertension, symptomatic orthostatic hypotension, mixed hyperlipidemia, mild aortic
stenosis, and CKD3a who presented to the emergency department with shortness of breath. It has gotten worse over the past several days. He also endorses lower extremity swelling. He has been having joint pain for several weeks that has gotten
worse. He states the joint pain is limiting his mobility. Chest x-ray was ordered and he was found to have cardiomegaly in addition to left lower lobe pneumonia with an adjacent small left parapneumonic pleural effusion. EKG with sinus
tachycardia and R wave amplitude has decreased. Bedside [id number] ultrasound showing pericardial effusion. Formal echocardiogram with evidence of tamponade.
Past Medical History
Past Medical History: Arrhythmias (Paroxysmal atrial fibrillation [on apixaban]), CAD, HTN and Hypercholesterolemia
Past Surgical History: Orthopedic
Social History
Tobacco: Non-Smoker
Alcohol: Occasional
Drug: None
Personal:
Living: With Family
Employment: Retired
Family History
Family History: Reviewed & Not Pertinent
Allergies / Home Medications
Allergy/AdvReac Type Severity Reaction Status Date / Time
Sulfa (Sulfonamide Allergy red spots Verified 07/26/23 06:41
Antibiotics)
�Medication �Instructions �Recorded �Confirmed �Type
aspirin 81 mg tablet,delayed 81 mg PO QPM 04/21/14 07/26/23 History
release
tamsulosin 0.4 mg capsule 0.4 mg PO QPM 04/21/14 07/26/23 History
Alleghany-3 Fatty Acids/Fish Oil 2 - 4 capsules PO DAILY 10/21/16 07/26/23 History
apixaban 5 mg tablet (Eliquis) 5 mg PO BID #30 tabs 10/21/16 07/26/23 Rx
atorvastatin 40 mg tablet 40 mg PO QPM 10/21/16 07/26/23 History
brimonidine 0.2 %-timolol 0.5 % 1 drp BOTH EYES BID 10/21/16 07/26/23 History
eye drops (Combigan)
finasteride 5 mg tablet 5 mg PO QPM 10/21/16 07/26/23 History
ketoconazole 2 % topical cream 1 applic TP DAILY FEET 10/21/16 07/26/23 History
latanoprost 0.005 % eye drops 1 drp BOTH EYES HS 10/21/16 07/26/23 History
lisinopril 5 mg tablet 5 mg PO QPM 10/21/16 07/26/23 History
loteprednol etabonate 0.5 % eye 1 drp BOTH EYES DAILY 10/21/16 07/26/23 History
gel drops (Lotemax)
metronidazole 0.75 % topical cream 1 applic topical BIDPRN PRN ROSACEA 10/21/16 07/26/23 History
(MetroCream)
psyllium husk (aspartame) 3.4 gram 1 packet PO DAILY 10/21/16 07/26/23 History
oral powder packet (Metamucil
Fiber Singles)
sildenafil 100 mg tablet (Viagra) 100 mg PO DAILYPRN PRN DIRECTED 10/21/16 07/26/23 History
Review of Systems
-
History Source: Patient
All other systems: Negative unless noted
Musculoskeletal: Joint Pain (all joints) and Edema (B/L LE)
Skin: Other (redness to right index finger)
Physical Exam
Vital Signs
Temp Pulse Resp BP Pulse Ox
98.2 F 110 16 144/76 92
07/26/23 09:48 07/26/23 10:15 07/26/23 09:48 07/26/23 10:00 07/26/23 10:00
Lab Results
07/26/23 07:08
07/26/23 07:08
Troponin I < 0.012 ng/ml 07/26/23 07:08
Qfe-U-Hhiujzepdzr Pept 953 pg/ml 07/26/23 07:08
Physical Exam
General: Well Developed, Well Nourished, No Apparent Distress and Pain
HEENT: Normocephalic, Anicteric and Moist Mucous Membranes
Respiratory: Clear and Non Labored Respirations
Cardiac: S1/S2, Regular Rhythm and Peripheral Edema (+1 non pitting LE edema)
Breast: Deferred by me
GI: Soft, Non Tender, Non Distended and Normal Bowel Sounds
Rectal: Deferred by Provider
Genito-urinary: No Costovertebral Tender
Musculoskeletal: No Clubbing and No Cyanosis
Skin: Warm and Dry
Neuro: AO x 3
Hematologic/Lymphatic: No Lymphadenopathy
Psych: Calm
Impression / Plan
-
Pericardial effusion with tamponade
-CRP 167, ESR 75, with transaminitis and mild leukocytosis
-Pericardial drain placed with 610mL maroon-colored fluid
-Cytology is pending
PNA
-COVID-19 negative, influenza negative
-Endorses systemic joint pain, blood cultures pending
-Antimicrobial therapy per primary
Joint pain, worsening
Transaminitis, per primary
Paroxysmal atrial fibrillation
-Currently sinus tachycardia, he normally has symptomatic atrial fibrillation
-Beta-uzma has been avoided for concern for potential bradycardia, as needed propranolol 20 mg every 6 hours when has fast AF
-Oral Anticoagulation: Apixaban 5 mg twice daily on hold in the setting pericardial drain
-[id number]: score at least 4 (HTN, age 75 or more, Vascular disease)
Hypertension, follow, patient has orthostatic lightheadedness, goal blood pressure <140/90
Aortic stenosis, mild, peak/mean gradients 27/50 mmHg, CHAD 1.7 cm, no aortic regurgitation, this will be followed the outpatient setting
Chronic stable angina, chest pain-free
Mixed hyperlipidemia, on atorvastatin
Data Reviewed
-
Medical Tests (Nuc Med, Echo etc): Report Reviewed by me (Echo as above)
Labs: Labs Reviewed by me
Old Records: Reviewed
--- NOTE | 2023-07-26 11:25 | ITS.CL.PN ---
[facility] [employer] [facility] - Procedure Note
Procedure
Procedure Note:
PERICARDIOCENTESIS PROCEDURE NOTE
Date of procedure: 07/26/2023
Referring Physician/Provider: Itz Alvarez M.D.
Indication: Large pericardial effusion, early pericardial tamponade.
Procedure:
After obtaining consent, the patient was brought to the cardiac yard laborer and placed in a recumbent position. Echocardiogram was used to ascertain the best approach vector. A(n) apical approach was selected. The fifth intercostal space along the mid
clavicular line was anesthetized with 1% lidocaine. Under ultrasound guidance, a micropuncture needle was advanced into the pericardial space under negative pressure. After obtaining flashback of pericardial fluid, the micropuncture wire was
advanced into the pericardial space and the needle was removed. The micropuncture sheath was advanced over the wire and the wire and dilator were removed. Agitated saline was injected through the micropuncture sheath confirming its presence in the
pericardial space on echocardiography. A 0.035 inch J-wire was advanced through the micropuncture sheath and into the pericardial space. The micropuncture sheath was removed and a 6 Kuwaiti sheath was advanced over the 0.035 inch wire. A pigtail
catheter was advanced through the sheath over the J-wire and placed in the pericardial space. The J-wire was removed. The pericardial pressure was measured. A sufficient sample of pericardial fluid was removed and sent for laboratory testing
(hemoglobin, hematocrit, white blood cell count, LDH, albumin, total protein, cytology and culture). The pigtail catheter was then connected to a Vacutainer and the pericardial space was evacuated. Serial echocardiography confirmed reduction in the
pericardial effusion from severe to trace. All evidence of tamponade was removed. The 6 Kuwaiti sheath was sutured into place. The pigtail catheter was likewise sutured into place then curled around the sheath and covered by a sterile Tegaderm.
Repeat pericardial pressure was measured, confirming significant reduction. The pigtail catheter was then connected to a ILANA drain to suction. The patient reported significant improvement in their shortness of breath.
Procedure Details:
Approach: Apical
Sheath/Drain size (Fr) 6
Pericardial Volume (mL): 610
Effusion type: Burgundy.
Non-effusion blood loss (mL): None.
Pericardial pressures
Pre drainage (mmHg): 24
Post drainage (mmHg): 11
Radiation dose:
Dose (mGy): 5.68
DAP (Gy*cm2): 0.4451
Fluoroscopy Time (minutes): 0.2
Conclusions:
1. Successful placement of a 6 Kuwaiti pericardial drain via apical approach.
2. Pericardial fluid has been sent for laboratory analysis.
Copy to: Itz Alvarez M.D., Jonas Henao M.D., Chadd Johnston M.D.
Black Craig DO, FACC, FACP
[2023-07-26 12:03] LABS: Body Fluid Hematocrit 4.6 %
[2023-07-26 12:06] LABS: Body Fluid Glucose 104 mg/dl; Body Fluid Protein 6.3 g/dl
[2023-07-26] MEDS: MORPHINE SULFATE 1 MG IV (12:07)
--- NOTE | 2023-07-26 12:22 | PTCARENOTE ---
Received pt from the CCL into 2250, sinus tachycardia on tele w HR 107, bp 142/67, pox 98-99% on RA, + peripheral pulses, +2 edema to bilateral lower extremities. Pericardial drain maintained to left CW w red drainage noted. Lungs diminished,
coughing and deep breathing encouraged. +bs, pt denies nausea/vomiting. Pt is DTV. PIV to right AC flushes easily. Pt does c/o 4/10 chest discomfort, Kayli Samano aware, morphine administered as ordered. Admission interview questions completed,
medication list updated. Plan of care reviewed and questions encouraged.
--- NOTE | 2023-07-26 12:28 | HPS.HSE ---
Family Physician
-
Family Physician: Jonas Henao
Chief Complaint
-
shortness of breath
History of Present Illness
88-year-old male was presenting from home with complaint of shortness of breath. Patient states for the past 2 weeks of generalized weakness and shortness of breath. States in the last 48 hours dyspnea on exertion worsened significantly. Also
stated of some chest discomfort. In the last 24 hours patient noticed diffuse shortness of breath and unable to walk greater than 20 feet. Also states of severe joint pains. States of diffuse joint pains bilaterally. Also states of joint
swelling which is new in onset. Patient was recently in the ER for complaint of chest pain. Patient troponin chest x-ray was normal and patient with improvement in symptoms he was discharged home. Patient also stated he followed up with primary
care doctor who stated patient could have viral disease. No sick contact. States of cough. No productive sputum. Patient came into the ER and underwent imaging with chest x-ray with severe effusions and cardiomegaly. Patient was eval by
cardiology and stat echocardiogram was performed which showed pericardial effusion with tamponade phenomenon. Patient was seen post pericardiocentesis and states remains with chest discomfort and shortness of breath. Received morphine earlier.
Medical History
Past Medical History
Past Medical History: Reports Other
Additional Past Medical History:
Paroxysmal atrial fibrillation
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
BPH
CAD
Primary hypertension
Hyperlipidemia
Past Surgical History: Reports Other
Additional Past Surgical History:
Cataract surgery
Left shoulder surgery
Social History
Tobacco: Non-smoker
Alcohol: Occasional (3-4 times a week glass of wine.)
Living: With Family
Family History
Family History: Not pertinent
Allergies / Home Medications
Allergies reflects when Allergies were last updated in [facility].
Home Medications with original date entered in [facility]
Allergy/Medication List:
Allergies
Allergy/AdvReac Type Severity Reaction Status Date / Time
Sulfa (Sulfonamide Allergy red spots Verified 07/26/23 06:41
Antibiotics)
Home Medications
aspirin 81 mg tablet,delayed release 81 mg PO QPM 04/21/14
tamsulosin 0.4 mg capsule 0.4 mg PO QPM 04/21/14
Cyril-3 Fatty Acids/Fish Oil 2 - 4 capsules PO DAILY 10/21/16
apixaban 5 mg tablet (Eliquis) 5 mg PO BID #30 tabs 10/21/16
atorvastatin 40 mg tablet 40 mg PO QPM 10/21/16
brimonidine 0.2 %-timolol 0.5 % eye drops (Combigan) 1 drp BOTH EYES BID 10/21/16
finasteride 5 mg tablet 5 mg PO QPM 10/21/16
ketoconazole 2 % topical cream 1 applic TP DAILY FEET 10/21/16
latanoprost 0.005 % eye drops 1 drp BOTH EYES HS 10/21/16
lisinopril 5 mg tablet 5 mg PO QPM 10/21/16
loteprednol etabonate 0.5 % eye gel drops (Lotemax) 1 drp BOTH EYES DAILY 10/21/16
metronidazole 0.75 % topical cream (MetroCream) 1 applic topical BIDPRN PRN ROSACEA 10/21/16
psyllium husk (aspartame) 3.4 gram oral powder packet (Metamucil Fiber Singles) 1 packet PO DAILY 10/21/16
sildenafil 100 mg tablet (Viagra) 100 mg PO DAILYPRN PRN DIRECTED 10/21/16
Review of Systems
-
History Source: Patient
A 12 point ROS was completed and negative except as noted: Yes
Physical Exam
Vital Signs
Vital Signs
Temp Pulse Resp BP Pulse Ox
98.2 F 110 16 144/76 92
07/26/23 09:48 07/26/23 10:15 07/26/23 09:48 07/26/23 10:00 07/26/23 10:00
Physical Exam
General: Well Developed, Well Nourished and No Apparent Distress
HEENT: NormoCephalic, Moist mucous membranes and Atraumatic
Respiratory: Clear
Cardiac: S1/S2, Regular Rhythm and Other (Pericardial drain noted); No Murmur or Rub
GI: Soft, Non Tender, Non Distended and Normal Bowel Sounds; No Organomegaly
Rectal: Deferred by Provider
Musculoskeletal: No Clubbing, No Cyanosis, Edema, Left Lower Extremity and Edema, Right Lower Extremity
Skin: Warm; No Rash
Neuro: Awake, AO x 3, No Motor Deficits and Nonfocal/grossly intact
Psych: Calm
Laboratory Results
-
07/26/23 07:08
07/26/23 07:08
Laboratory Results
Lactic Acid Cancelled 07/26/23 12:15
Total Bilirubin 0.8 mg/dl (0.2-1.3) 07/26/23 07:08
AST 126 U/L (17-59) H 07/26/23 07:08
ALT 153 U/L (0-50) H 07/26/23 07:08
Alkaline Phosphatase 239 U/L (38-126) H 07/26/23 07:08
Troponin I < 0.012 ng/ml 07/26/23 07:08
Impression/Plan
-
#Acute pericardial effusion/tamponade phenomenon
Status post pericardiocentesis with 610 cc of fluid was removed by Dr. Craig
Pericardial drain placed
Follow-up on the studies.
Lyme studies pending
ESR and CRP elevated to be noted
Blood cultures in lab
Lactic acid normal
Troponin checked negative x 2
Follow-up on the fluid study count, culture Gram stain and fungal studies and cytology
Also can do CT chest to evaluate for pleural effusion in the next 24 hours also
Monitor oxygenation vital signs closely
Avoid hypotension
Pain control
Cardiology recs
#Left lower lobe community-acquired pneumonia
Start patient on ceftriaxone and doxycycline (Lyme studies pending)
Sputum sample
Check strep pneumoniae antigen
Paroxysmal atrial fibrillation
Eliquis on hold. Restart pending cardiology
Monitor on telemetry
CAD
Aortic stenosis
Continue with statin
Aspirin and Eliquis on hold
Continue with lisinopril
BPH
Continue with home meds
DVT ppx-
Discussed with patient spouse at bedside in detail
I spent a total of 78 minutes with the patient or on the floor. More than 50% of this time involved counseling and coordination of care.
[2023-07-26 12:52] LABS: Body Fluid LDH 3350 U/L
[2023-07-26 13:57] LABS: Body Fluid WBC 522 /CUMM
--- NOTE | 2023-07-26 14:51 | PTCARENOTE ---
BC and urine culture sent. Pt's own eye drops sent to pharmacy to be verifiied. Pt tolerated lunch tray. States pain is slightly improved s/p morphine dose.
[2023-07-26 14:58] LABS: Body Fluid Second Tech BP
[2023-07-26 15:07] LABS: Body Fluid Granulocytes 41 %; Body Fluid Lymphocytes 32 %
[2023-07-26 15:15] LABS: Body Fluid Macrophages 27 %
[2023-07-26] MEDS: PROSCAR PO (17:20)
[2023-07-26] MEDS: FLOMAX 0.400000000000000022 MG PO (17:24)
[2023-07-26] MEDS: ZESTRIL 5 MG PO (17:24)
[2023-07-26] MEDS: LIPITOR 40 MG PO (17:24)
[2023-07-26] MEDS: TYLENOL 650 MG PO (20:09)
[2023-07-26] MEDS: COMBIGAN EYE DROPS 1 DROP BOTH EYES (20:10)
[2023-07-26] MEDS: XALATAN OPHTHALMIC SOLUTION 1 DROP BOTH EYES (22:39)
[2023-07-27] VITALS (7 sets, daily range): BP systolic 108–144; BP diastolic 57–69; BMI 25.9
[2023-07-27 04:21] LABS: % Basophils 0.3 % (0-2); % Eosinophils 0.4 % (0-6); % Immature Granulocytes 0.6 % (0-0.5); % Lymphocytes 11.4 % (20.5-51.1); % Monocytes 17.1 % (1.7-9.3); % Neutrophils 70.2 % (42.2-75.2); Absolute Immature Granulocytes 0.1 10^3/uL (0-0.05); Absolute Lymphocytes 1.2 10^3/uL (1.2-3.4); Absolute Monocytes 1.8 10^3/uL (0.1-0.6); Absolute Neutrophils 7.6 10^3/uL (1.4-6.5); Hematocrit 37.6 % (39.0-52.0); Hemoglobin 12.6 g/dL (13.0-18.0); Mean Corp Hgb Conc. 33.5 g/dL (33.0-37.0); Mean Corpuscular Hgb 29.2 pg (27.0-31.0); Mean Corpuscular Volume 87.2 fL (80.0-94.0); Mean Platelet Volume 10.4 fL (7.4-10.4); Nucleated Red Blood Cells % 0 % (-); Platelet Count 317 10^3/uL (130-400); Red Blood Cell Count 4.31 10^6/uL (4.70-6.10); Red Cell Dist. Width 13.5 % (11.5-14.5); White Blood Cell Count 10.7 10^3/uL (4.8-10.8)
[2023-07-27 04:43] LABS: ALT (SGPT) 117 U/L (0-50); AST (SGOT) 82 U/L (17-59); Albumin 3.4 g/dl (3.5-5.0); Alkaline Phosphatase 217 U/L (38-126); Blood Urea Nitrogen 17 mg/dl (9-20); Calcium 8.7 mg/dl (8.4-10.2); Carbon Dioxide 29 mmol/L (22-30); Chloride 101 mmol/L (98-107); Estimated Creatinine Clearance 61 ml/min; Glucose 131 mg/dl (70-99); Potassium 4.1 mmol/L (3.5-5.1); Sodium 137 mmol/L (135-145); Total Bilirubin 0.8 mg/dl (0.2-1.3); Total Protein 6.7 g/dl (6.3-8.2); eGFR > 60.00
--- NOTE | 2023-07-27 05:07 | PTCARENOTE ---
No output visualized from pericardial drain this shift. Pt. complained of pain at drain site at beginning of shift for which Tylenol was very effective. Some MONTIEL assessed when getting OOB to use BSC, lungs diminished, pulse ox 97% on 2L O2. NSR
on the monitor.
[2023-07-27 05:08] LABS: TSH Reflex To Free T4 1.64 uIU/ml (0.47-4.68)
--- NOTE | 2023-07-27 08:17 | W.PN.HOSP.TC ---
Today's Communication/Plan
-
colchine/aspirin
cont abx
ppi added
drain per cards
Assessment / Plan
Assessment / Plan
General: Well Developed, Well Nourished and No Apparent Distress
HEENT: NormoCephalic, Moist mucous membranes and Atraumatic
Respiratory: Clear
Cardiac: S1/S2, Regular Rhythm and Other (Pericardial drain noted); No Murmur or Rub
GI: Soft, Non Tender, Non Distended and Normal Bowel Sounds; No Organomegaly
Rectal: Deferred by Provider
Musculoskeletal: No Clubbing, No Cyanosis, Edema, Left Lower Extremity and Edema, Right Lower Extremity
Skin: Warm; No Rash
Neuro: Awake, AO x 3, No Motor Deficits and Nonfocal/grossly intact
Psych: Calm
#Acute pericardial effusion/tamponade phenomenon/Pericarditis
Status post pericardiocentesis with 610 cc of fluid was removed by Dr. Craig
Pericardial drain placed
Follow-up on the studies.
Lyme studies pending
ESR and CRP elevated to be noted
Blood cultures in lab
Lactic acid normal
Troponin checked negative x 2
TSH wnl.
RF factor and POLINA pending
Fluid culture in lab/pending
fungal pending
cytology pending
Can consider CT chest/US chest to assess pleural effusion if with sob
Monitor oxygenation vital signs closely
Avoid hypotension
Pain control
Started on colchine 0.6mg BID and aspirin high dose with taper regimen. PPI added.
Cardiology recs
#Left lower lobe community-acquired pneumonia
Start patient on ceftriaxone and doxycycline (Lyme studies pending)
Sputum sample
Check strep pneumoniae antigen-negative.
Paroxysmal atrial fibrillation
Eliquis on hold. Restart pending cardiology
Monitor on telemetry
CAD
Aortic stenosis
Continue with statin
Aspirin and Eliquis on hold
Continue with lisinopril
BPH
Continue with home meds
DVT ppx-scds for now
Anticipated Discharge: > 48 hours
Subjective/Interval History
-
Date of Service: July 27, 2023
Feeling better compared to yesterday
Objective Data
-
Labs:
Laboratory Results
07/27/23
03:43
WBC 10.7
Hgb 12.6 L
Hct 37.6 L
Plt Count 317
Sodium 137
Potassium 4.1
Chloride 101
Carbon Dioxide 29
BUN 17
Creatinine 0.9
Glucose 131 H
Calcium 8.7
Total Bilirubin 0.8
AST 82 H
ALT 117 H
Alkaline Phosphatase 217 H
Vital Signs:
Vital Signs
Temp Pulse Resp BP Pulse Ox
98.6 F 80 20 122/64 97
07/27/23 07:48 07/27/23 06:00 07/27/23 07:48 07/27/23 03:16 07/27/23 07:48
I&O
07/26/23 07/27/23 07/28/23
06:59 06:59 06:59
Intake Total 680 / 680
Output Total 1375 / 1375
Balance -695 / -695
[2023-07-27] MEDS: COMBIGAN EYE DROPS 1 DROP BOTH EYES ×2 (08:54→20:00)
--- NOTE | 2023-07-27 08:59 | W.PN.CD ---
Today's Communication / Plan
-
Start colchicine 0.6 mg BID x 2 months.
Start high dose ASA taper.
Monitor drain output.
When output is < 0.5-1 mL/hour x 12-24 hours, we will repeat echo to reassess effusion. If no effusion remains, we will pull the drain.
RF/POLINA/Lyme pending.
ABX for LLL CAP per primary team.
Impression / Plan
-
Impression/Plan: 88 y/o male with mild aortic stenosis, HLD, PAF on apixaban admitted with large pericardial effusion and early tamponade.
#Pericarditis with pericardial effusion and tamponade
-New diagnosis.
-CRP 167, ESR 75, with transaminitis and mild leukocytosis.
-Pericardial drain placed with 610mL burgundy-colored fluid.
-Cytology is pending.
-Continue colchicine 0.6 mg BID x 2 months
-High dose ASA taper:
-ASA 975 TID x 3 days.
-ASA 650 TID x 3 days.
-ASA 325 TID x 3 days.
-ASA 325 BID x 3 days.
-ASA 325 daily x 3 days.
-ASA 81 mg daily indefinitely (known angina).
-When drainage is < 0.5-1 mL/hour x 12-24 hours, repeat echo to ensure that the drain has not clotted and that no effusion remains.
-If echo is reassuring at that time, we will d/c drain.
#LLL PNA
-COVID-19 negative, influenza negative, Strep pneumo AG negative.
-BCx pending.
-Empiric antibiotics.
#Joint pain, worsening
-Relatively new diagnosis.
-Elevated inflammatory markers. Difficult to discern if related in the context of pericarditis.
-Agree with checking Lyme titres.
-DDx will also include autoimmune processes (late in life for RA/SLE, no malar rash, etc). Given his age, polymyalgia rheumatica is a real possibility.
-RF/POLINA pending.
-Management per primary.
#Transaminitis
-Acute.
-Improving without intervention. I suspect this was congestive hepatopathy from the tamponade.
#Paroxysmal atrial fibrillation
-Currently in NSR.
-Beta-uzma has been avoided for concern for potential bradycardia, as needed propranolol 20 mg every 6 hours when has fast AF.
-[id number]: score at least 4 (HTN, age 75 or more, Vascular disease).
-Oral Anticoagulation: Apixaban 5 mg twice daily on hold in the setting pericardial drain.
#Hypertension
-Chronic, stable.
-Continue home lisinopril 5 mg daily.
#Aortic stenosis
-Mild, peak/mean gradients 27/50 mmHg, CHAD 1.7 cm, no aortic regurgitation.
-Outpatient follow up.
#Chronic stable angina
-Chronic, stable.
-Chest pain-free
#Mixed hyperlipidemia
-Chronic, stable.
-Continue atorvastatin.
Subjective/Interval History:
Drain placed via apical approach yesterday for 610 mL of burgundy/bloody fluid.
Echo showed resolution of the effusion.
Patient developed residual pain and was given morphine/APAP with good effect.
Weight is down 3.8 kg.
BP remains normal and HR has fallen into normal range.
He remains on supplemental oxygen.
CXR suggests CAP. The patient has been started on ceftriaxone and azithromycin.
Doxycycline started for possible Lyme disease (diffuse joint pain).
Transaminitis is improving.
DATA:
CXR, 07/26/2023:
IMPRESSION:
1. New moderate size left lower lobe airspace consolidation suggesting LEFT LOWER LOBE PNEUMONIA with an adjacent small left parapneumonic pleural effusion.
2. Minimal right pleural effusion and mild right lower lobe airspace opacity.
3. Moderate cardiomegaly suggesting a dilated cardiomyopathy.
Pericardiocentesis, 07/26/2023:
Conclusions:
1. Successful placement of a 6 Azeri pericardial drain via apical approach.
2. Pericardial fluid has been sent for laboratory analysis.
TTE, 07/26/2023:
CONCLUSIONS
Limited, intraprocedural study.
Normal left ventricular systolic function.
Normal right ventricular size and function.
Normal atria.
Large pericardial effusion. Following pericardiocentesis, no pericardial
effusion has resolved.
Ascites is observed.
Compared to prior study from earlier today, the pericardial effusion is
redemonstrated and resolved after pericardiocentesis.
Physical Exam
Vital Signs/Labs
Vital Signs
Temp Pulse Resp BP Pulse Ox
37.0 C 85 20 122/57 97
07/27/23 07:48 07/27/23 08:00 07/27/23 07:48 07/27/23 07:49 07/27/23 07:48
07/25/23 07/26/23 07/27/23
11:59 11:59 11:59
Actual Weight 85.7 kg 81.9 kg
07/27/23 03:43
07/27/23 03:43
07/26/23
07:08
Pym-T-Yisijfnxril Pept 953
LAB Results
07/26/23
07:08
Troponin I < 0.012
Physical Exam
Constitutional: No acute distress and Comfortable
EENT: Anicteric and Moist mucous membranes
Cardiovascular: Rhythm & rate is regular, Pedal edema is absent, JVD pressure is normal, S1S2 is normal and Murmur/rub/gallop absent
Respiratory: Respiratory effort normal, Lungs clear to auscul., Wheeze Absent, Crackles Absent and Rhonchi Absent
GI: Soft, Distention absent, Flat, Non tender and Normal bowel sounds
Neuro/Psych: AO x 3
Other: Cardiac Device Site (Apical drain site is C/D/I.)
Data Reviewed
-
Date of Service: July 27, 2023
Medical Decision Making: Reviewed Test Results, Independent Historian Assessment and Test Interpretation
EKG: Tracing Personally Visualized and interpreted and Report Reviewed by me
Echo: Tracing Personally Visualized and interpreted and Report Reviewed by me
X-Ray/CT/US/MRI/NUC/PET: Image Personally Visualized and interpreted and Report Reviewed by me
Medical Tests (PFT, Pathology etc): Image Personally Visualized and interpreted and Report Reviewed by me
Labs: Labs Reviewed by me
[2023-07-27] MEDS: NON-FORMULARY ITEM 1 DROP BOTH EYES (09:00)
[2023-07-27] MEDS: METAMUCIL, KONSYL 1 PACKET PO (09:01)
[2023-07-27] MEDS: ROCEPHIN 1000 MG IV (09:01)
[2023-07-27] MEDS: NIZORAL 2% CREAM 1 APPLIC TOPICAL (09:01)
[2023-07-27] MEDS: STERILE WATER FOR INJECTION 10 ML IV (09:02)
[2023-07-27] MEDS: VIBRAMYCIN 100 MG PO ×2 (09:02→20:00)
[2023-07-27] MEDS: PROTONIX 40 MG PO (10:50)
[2023-07-27] MEDS: COLCHICINE 0.599999999999999978 MG PO ×2 (10:50→19:59)
[2023-07-27] MEDS: ASPIRIN 975 MG PO (10:50)
--- NOTE | 2023-07-27 11:00 | PTCARENOTE ---
Assumed care of pt from night RN. Pt received awake and alert, Ox3. VSS, CM shows NSR with murmur, POX 96% on RA. Pt assisted to BR and to chair. He denies any pain or discomfort. ASA and Colchicine given as per MAY. Pericardial drain intact
to right front thorax, minimal bldy drg noted. Family at bedside.
--- NOTE | 2023-07-27 15:41 | PTCARENOTE ---
Assisted pt to BR where he had a moderate bloody stool. Dr Craig made aware, all further doses of ASA placed on hold.
[2023-07-27] MEDS: ASPIRIN PO (16:46)
[2023-07-27] MEDS: PROSCAR 5 MG PO (17:59)
[2023-07-27] MEDS: FLOMAX 0.400000000000000022 MG PO (17:59)
[2023-07-27] MEDS: LIPITOR 40 MG PO (17:59)
[2023-07-27] MEDS: ZESTRIL 5 MG PO (17:59)
[2023-07-27] MEDS: XALATAN OPHTHALMIC SOLUTION 1 DROP BOTH EYES (22:17)
[2023-07-27] MEDS: MELATONIN 5 MG PO (22:17)
[2023-07-28] VITALS (8 sets, daily range): BP systolic 123–178; BP diastolic 55–84; BMI 26.1
[2023-07-28 03:26] LABS: % Basophils 0.3 % (0-2); % Eosinophils 0.9 % (0-6); % Immature Granulocytes 0.4 % (0-0.5); % Lymphocytes 9.4 % (20.5-51.1); % Monocytes 14.8 % (1.7-9.3); % Neutrophils 74.2 % (42.2-75.2); Absolute Eosinophils 0.1 10^3/uL (0-0.7); Absolute Monocytes 1.6 10^3/uL (0.1-0.6); Absolute Neutrophils 7.9 10^3/uL (1.4-6.5); Hematocrit 33.8 % (39.0-52.0); Hemoglobin 11.2 g/dL (13.0-18.0); Mean Corp Hgb Conc. 33.1 g/dL (33.0-37.0); Mean Corpuscular Hgb 29.6 pg (27.0-31.0); Mean Corpuscular Volume 89.2 fL (80.0-94.0); Mean Platelet Volume 10.5 fL (7.4-10.4); Nucleated Red Blood Cells % 0 % (-); Platelet Count 293 10^3/uL (130-400); Red Blood Cell Count 3.79 10^6/uL (4.70-6.10); Red Cell Dist. Width 13.5 % (11.5-14.5); White Blood Cell Count 10.6 10^3/uL (4.8-10.8)
[2023-07-28] MEDS: TYLENOL 650 MG PO ×2 (03:28→16:18)
[2023-07-28 04:02] LABS: ALT (SGPT) 100 U/L (0-50); AST (SGOT) 76 U/L (17-59); Albumin 2.8 g/dl (3.5-5.0); Alkaline Phosphatase 177 U/L (38-126); Blood Urea Nitrogen 22 mg/dl (9-20); Calcium 8.2 mg/dl (8.4-10.2); Carbon Dioxide 24 mmol/L (22-30); Chloride 103 mmol/L (98-107); Estimated Creatinine Clearance 68 ml/min; Glucose 130 mg/dl (70-99); Potassium 4.5 mmol/L (3.5-5.1); Sodium 133 mmol/L (135-145); Total Bilirubin 0.5 mg/dl (0.2-1.3); Total Protein 5.8 g/dl (6.3-8.2); eGFR > 60.00
[2023-07-28] MEDS: NON-FORMULARY ITEM 1 DROP BOTH EYES (08:31)
[2023-07-28] MEDS: COMBIGAN EYE DROPS 1 DROP BOTH EYES ×2 (08:34→20:40)
[2023-07-28] MEDS: ROCEPHIN 1000 MG IV (08:36)
[2023-07-28] MEDS: STERILE WATER FOR INJECTION 10 ML IV (08:37)
[2023-07-28] MEDS: METAMUCIL, KONSYL 1 PACKET PO (08:47)
[2023-07-28] MEDS: VIBRAMYCIN 100 MG PO ×2 (08:48→20:36)
[2023-07-28] MEDS: PROTONIX 40 MG PO (08:49)
[2023-07-28] MEDS: COLCHICINE 0.599999999999999978 MG PO ×2 (08:49→20:36)
--- NOTE | 2023-07-28 10:05 | W.PN.CD ---
Today's Communication / Plan
-
Hold aspirin.
Monitor H/H given hematochezia.
Colace to soften stool.
Limited echo this morning.
If effusion is still gone, we will pull drain.
ABX to PO?
Impression / Plan
-
Impression/Plan: 88 y/o male with mild aortic stenosis, HLD, PAF on apixaban admitted with large pericardial effusion and early tamponade.
#Pericarditis with pericardial effusion and tamponade
-New diagnosis.
-CRP 167, ESR 75, with transaminitis and mild leukocytosis.
-Pericardial drain placed with 610mL burgundy-colored fluid.
-Cytology is pending.
-Continue colchicine 0.6 mg BID x 2 months
-When drainage is < 0.5-1 mL/hour x 12-24 hours, repeat echo to ensure that the drain has not clotted and that no effusion remains.
-If echo is reassuring at that time, we will d/c drain.
#LLL PNA
-COVID-19 negative, influenza negative, Strep pneumo AG negative.
-BCx NGTD.
-Empiric antibiotics.
#BRBPR/Hematochezia
-New diagnosis.
-Hbg drop noted.
-He reports small blood on TP and a the end of the BM.
-Possibly hemorrhoidal.
-Colace BID to soften stool.
-ASA on hold.
#Joint pain - Suspicious for PMR
-Relatively new diagnosis. Symptoms improving.
-Elevated inflammatory markers. Difficult to discern if related in the context of pericarditis.
-Agree with checking Lyme titres.
-DDx will also include autoimmune processes (late in life for RA/SLE, no malar rash, etc). Given his age, polymyalgia rheumatica is a real possibility.
-RF/POLINA pending.
-One diagnostic criteria of PMR is response to steroids (prednisone 15 mg daily), though this would adversely affect his pericarditis (much higher rate of relapse). If steroids were to become chronic, this may be a moot point.
#Transaminitis
-Acute.
-Improving without intervention. I suspect this was congestive hepatopathy from the tamponade.
#Paroxysmal atrial fibrillation
-Currently in NSR.
-Beta-uzma has been avoided for concern for potential bradycardia. HR consistently in the 80-110's. Rechallenge with metoprolol 25 mg daily.
-[id number]: score at least 4 (HTN, age 75 or more, Vascular disease).
-Oral Anticoagulation: Apixaban 5 mg twice daily on hold in the setting pericardial drain.
#Hypertension
-Chronic, stable.
-Continue home lisinopril 5 mg daily.
#Aortic stenosis
-Mild, peak/mean gradients 27/50 mmHg, CHAD 1.7 cm, no aortic regurgitation.
-Outpatient follow up.
#Chronic stable angina
-Chronic, stable.
-Chest pain-free
#Mixed hyperlipidemia
-Chronic, stable.
-Continue atorvastatin.
Subjective/Interval History:
Blood bowel movement after first dose of high dose aspirin.
ASA taper discontinued.
Hbg dropped from 12.6 --> 11.2.
He feels well. Joint pain is improving.
DATA:
CXR, 07/26/2023:
IMPRESSION:
1. New moderate size left lower lobe airspace consolidation suggesting LEFT LOWER LOBE PNEUMONIA with an adjacent small left parapneumonic pleural effusion.
2. Minimal right pleural effusion and mild right lower lobe airspace opacity.
3. Moderate cardiomegaly suggesting a dilated cardiomyopathy.
Pericardiocentesis, 07/26/2023:
Conclusions:
1. Successful placement of a 6 Romanian pericardial drain via apical approach.
2. Pericardial fluid has been sent for laboratory analysis.
TTE, 07/26/2023:
CONCLUSIONS
Limited, intraprocedural study.
Normal left ventricular systolic function.
Normal right ventricular size and function.
Normal atria.
Large pericardial effusion. Following pericardiocentesis, no pericardial
effusion has resolved.
Ascites is observed.
Compared to prior study from earlier today, the pericardial effusion is
redemonstrated and resolved after pericardiocentesis.
Physical Exam
Vital Signs/Labs
Vital Signs
Temp Pulse Resp BP Pulse Ox
36.7 C 99 20 145/70 98
07/28/23 08:12 07/28/23 09:00 07/28/23 08:12 07/28/23 08:11 07/28/23 08:12
07/26/23 07/27/23 07/28/23
11:59 11:59 11:59
Actual Weight 85.7 kg 81.9 kg 82.6 kg
07/28/23 02:33
07/28/23 02:33
07/26/23
07:08
Wzd-X-Ruyaovqsoqk Pept 953
LAB Results
07/26/23
07:08
Troponin I < 0.012
Physical Exam
Constitutional: No acute distress and Comfortable
EENT: Anicteric and Moist mucous membranes
Cardiovascular: Rhythm & rate is regular, Pedal edema is absent, JVD pressure is normal, S1S2 is normal and Murmur/rub/gallop absent
Respiratory: Respiratory effort normal, Lungs clear to auscul., Wheeze Absent, Crackles Absent and Rhonchi Absent
GI: Soft, Distention absent, Flat, Non tender and Normal bowel sounds
Neuro/Psych: AO x 3
Data Reviewed
-
Date of Service: July 28, 2023
Medical Decision Making: Reviewed Test Results, Independent Historian Assessment and Test Interpretation
EKG: Tracing Personally Visualized and interpreted and Report Reviewed by me
Echo: Tracing Personally Visualized and interpreted and Report Reviewed by me
X-Ray/CT/US/MRI/NUC/PET: Image Personally Visualized and interpreted and Report Reviewed by me
Medical Tests (PFT, Pathology etc): Image Personally Visualized and interpreted and Report Reviewed by me
Labs: Labs Reviewed by me
[2023-07-28] MEDS: NIZORAL 2% CREAM TOPICAL (10:48)
--- NOTE | 2023-07-28 11:19 | CM ---
Chart reviewed. Patient is independent of ADLS, lives with his in a [address], 2 [address]STANCE, uses a walking stick when outside. Patient said he feels weaker and would like a walker. I asked Dr Gonzales for a PT evaluation and also a script for a walker.
Patient is not current with [facility], but is interested. Referral sent to [facility] [place]. Plan is for the patient to go home with [facility]. CM to follow
[2023-07-28 16:55] LABS: Lyme Antibody Screen, EIA Negative (Negative)
[2023-07-28 16:55] LABS: Rheumatoid Agglutinin Less Than 10 IU (<10 IU)
--- NOTE | 2023-07-28 17:15 | PTCARENOTE ---
Pt's pericardial drain was d/c'd at 1700 by MD at bedside. Pt denies any discomfort. Left, lateral old drain site w/ dry dressing covered by a tegadern. Will monitor VS.
--- NOTE | 2023-07-28 17:18 | PTCARENOTE ---
Pt's heart rate 130's, sinus tach, while using the urine bottle. Will monitor.
--- NOTE | 2023-07-28 17:21 | PTCARENOTE ---
Pt c/o feeling achy and febrile. Temp 98.6. aware. Will monitor.
--- NOTE | 2023-07-28 18:03 | W.PN.HOSP.TC ---
Today's Communication/Plan
-
recheck CXR, consider Pulm consult
continue IV abx
await removal of pericardial catheter
PT/OT
Assessment / Plan
Assessment / Plan
#Acute pericardial effusion/tamponade phenomenon/Pericarditis
Status post pericardiocentesis with 610 cc of fluid was removed by Dr. Craig
Pericardial drain placed
Lyme studies Neg
ESR 75 and CRP 167.9
Blood cultures NGTD
Lactic acid normal
Troponin checked negative x 2
TSH wnl.
RF factor Neg and POLINA pending
Fluid culture NGTD
fungal neg
cytology pending
Can consider CT chest/US chest to assess pleural effusion if with sob
Monitor oxygenation vital signs closely
Avoid hypotension
Pain control
Started on colchicine 0.6mg BID and aspirin high dose with taper regimen. PPI added.
Cardiology recs
07/27 Echo: Limited echo s/p pericardiocentesis on 07/26/2023.
At most trivial pericardial effusion.
Pleural effusion present.
Mild to moderate aortic stenosis.
Normal left ventricular systolic function.
No significant change since the prior limited study of 07/26/2023.
#Left lower lobe community-acquired pneumonia
Start patient on ceftriaxone and doxycycline (Lyme studies pending)
Sputum sample
strep pneumoniae antigen-negative.
Paroxysmal atrial fibrillation
Eliquis on hold. Restart pending cardiology
Monitor on telemetry
CAD
Aortic stenosis
Continue with statin
Aspirin and Eliquis on hold
Continue with lisinopril
BPH
Continue with home meds
DVT ppx-scds for now
Anticipated Discharge: 24 - 48 hours
Subjective/Interval History
-
Date of Service: July 28, 2023
Generally feels better
Objective Data
-
Vital Signs:
Vital Signs
Temp Pulse Resp BP Pulse Ox
98.6 F 118 18 162/77 98
07/28/23 15:58 07/28/23 17:00 07/28/23 11:09 07/28/23 16:12 07/28/23 11:09
I&O
07/27/23 07/28/23 07/29/23
06:59 06:59 06:59
Intake Total 680 / 680 480 / 480
Output Total 1375 / 1375 0 / 0
Balance -695 / -695 480 / 480
Review of Systems
-
History Source: Patient and Family ( at bedside)
Constitutional: Denies Fever
Respiratory: Denies No Symptoms
Cardiac: Reports Chest Pain (with deep inspirations)
Abdomen/GI: Reports No Symptoms
Physical Exam
-
General: Well Developed, Well Nourished and No Apparent Distress
HEENT: Normocephalic, Atraumatic and Moist Mucous Membranes
Respiratory: Clear to Auscultation; Negative Wheezes, Rales or Rhonchi
Cardiac: Regular Rhythm, S1/S2, Rub and Other (pericardial in place)
GI: Soft, Nontender and Nondistended
Musculoskeletal: No Clubbing, No Cyanosis and No Edema
Neuro: Awake, Alert and Oriented
[2023-07-28] MEDS: PROSCAR PO ×2 (20:36→20:39)
[2023-07-28] MEDS: ZESTRIL 5 MG PO (20:36)
[2023-07-28] MEDS: LIPITOR 40 MG PO (20:36)
[2023-07-28] MEDS: FLOMAX 0.400000000000000022 MG PO (20:36)
[2023-07-28] MEDS: COLACE 100 MG PO (20:36)
[2023-07-28] MEDS: ULTRAM 50 MG PO (21:13)
[2023-07-28 23:00] LABS: ANA, IgG Reflex to HEp-2 None Detected (None Detected)
[2023-07-28] MEDS: XALATAN OPHTHALMIC SOLUTION 1 DROP BOTH EYES (23:02)
[2023-07-28 23:33] LABS: Urine Albumin Negative (Neg - Trace); Urine Bilirubin Negative (Negative); Urine Character Clear (Clear); Urine Color Yellow; Urine Glucose Negative (Negative); Urine Ketone Negative (Negative); Urine Leukocyte Negative (Negative); Urine Nitrite Negative (Negative); Urine Occult Blood Negative (Negative); Urine Urobilinogen Negative (Neg - 1+)
[2023-07-29] VITALS (10 sets, daily range): BP systolic 110–159; BP diastolic 60–80; PULSE 105; BMI 25.5
--- NOTE | 2023-07-29 00:45 | PTCARENOTE ---
Assumed care of patient at change of shift. Pt AAOX3, [place], and tele monitor shows NSR-Sinus tach. Patient rang call lubin multiple times about needing to void. Pt voiding small amounts and clear yellow urine. Patient c/o urgency and frequently
requesting for urinal bottle often. This RN bladder scanned patient prior to a void. At 21:00 bladder scan performed w/ result of 378mls, and pt was able to void 150mls. PVR w/ result of 256mls. Manjit DILL notified, and orders
obtained. Urine collected and sent to lab. Patient also refused taking Proscar this evening and states 'I haven't been on that medication in 5 years'. Manjit DILL notified and discontinued medication.
Left lateral chest dressing C/D/I. Patient denies any chest pain or SOB. Call lubin in reach and pt aware of POC.
[2023-07-29 05:28] LABS: % Basophils 0.2 % (0-2); % Eosinophils 0.2 % (0-6); % Immature Granulocytes 0.5 % (0-0.5); % Lymphocytes 9.3 % (20.5-51.1); % Monocytes 17.9 % (1.7-9.3); % Neutrophils 71.9 % (42.2-75.2); Absolute Immature Granulocytes 0.1 10^3/uL (0-0.05); Absolute Lymphocytes 1.2 10^3/uL (1.2-3.4); Absolute Monocytes 2.3 10^3/uL (0.1-0.6); Absolute Neutrophils 9.3 10^3/uL (1.4-6.5); Hematocrit 35.2 % (39.0-52.0); Hemoglobin 11.9 g/dL (13.0-18.0); Mean Corp Hgb Conc. 33.8 g/dL (33.0-37.0); Mean Corpuscular Hgb 29.8 pg (27.0-31.0); Mean Platelet Volume 10.1 fL (7.4-10.4); Nucleated Red Blood Cells % 0 % (-); Platelet Count 296 10^3/uL (130-400); Red Cell Dist. Width 13.2 % (11.5-14.5); White Blood Cell Count 12.9 10^3/uL (4.8-10.8)
--- NOTE | 2023-07-29 05:32 | PTCARENOTE ---
CC#[address], pt voided 1,200ml of clear yellow urine since 23:30.
[2023-07-29 05:49] LABS: Blood Urea Nitrogen 13 mg/dl (9-20); Calcium 8.4 mg/dl (8.4-10.2); Carbon Dioxide 25 mmol/L (22-30); Chloride 100 mmol/L (98-107); Estimated Creatinine Clearance 68 ml/min; Glucose 123 mg/dl (70-99); Potassium 4.1 mmol/L (3.5-5.1); Sodium 131 mmol/L (135-145); eGFR > 60.00
--- NOTE | 2023-07-29 08:49 | W.PN.CD ---
Today's Communication / Plan
-
Colchicine 0.6 mg BID x 3 months
Echo in 2 weeks (sooner if clinical concerns arise) and then resume Eliquis if no recurrent effusion (and pathology of fluid negative for cancer)
- Dr. Craig stopped NSAID (high dose ASA in light of BRBPR of uncertain etiology
I would not withhold therapy with low dose steroids if PMR is HIGHLY Suspected
Cardiology will sign off. We will arrange for echo and cardilogy followup
-
-
Impression / Plan
-
88 y/o male with mild aortic stenosis, HLD, PAF on apixaban admitted with large pericardial effusion and early tamponade.
Pericarditis with pericardial effusion and tamponade
- CRP 167, ESR 75, with transaminitis and mild leukocytosis.
- Pericardial drain placed with 610mL burgundy-colored fluid.
- Cytology is pending.
- Continue colchicine 0.6 mg BID x 3 months
- Drain out
- LDH elevated in pericardial fluid
- Pathology is pending
- Plan echo in 2 weeks (sooner if clinical concerns arise) and then resume Eliquis if no recurrent effusion (and pathology of fluid negative for cancer)
- Dr. Craig stopped NSAID (high dose ASA in light of BRBPR of uncertain etiology
Sinus tach
- If needed could try low dose BB but sinus tach is likely related to medical illness and so therapy is directed at underlying process metoprolol 25 mg daily.
LLL PNA suggested by CXR, per hospitalist
New BRBPR/Hematochezia, ossibly hemorrhoidal.
Joint pain - Suspicious for PMR
-Elevated inflammatory markers. Difficult to discern if related in the context of pericarditis.
-Agree with checking Lyme titres.
-DDx will also include autoimmune processes (late in life for RA/SLE, no malar rash, etc). Given his age, polymyalgia rheumatica is a real possibility.
-RF/POLINA pending.
-One diagnostic criteria of PMR is response to steroids (prednisone 15 mg daily), though this would adversely affect his pericarditis (much higher rate of relapse). If steroids were to become chronic, this may be a moot point.
- For PMR most pt are off steroids in 6 months
- Rare case reports of pericardial effusion and tamponade associated with PMR
- I would not withhold therapy with low dose steroids if PMR is HIGHLY Suspected
Transaminitis, some improvement; suspect this was congestive hepatopathy from the tamponade.
Paroxysmal atrial fibrillation
-Currently in NSR/sinus tach
-Beta-uzma has been avoided for concern for potential bradycardia. HR consistently in the 80-110's.
-[id number]: score at least 4 (HTN, age 75 or more, Vascular disease).
-Oral Anticoagulation: Apixaban 5 mg twice daily on hold in the setting pericardial drain
Hypertension
Aortic stenosis
Chronic stable anginae
Mixed hyperlipidemia
Subjective/Interval History:
No CP or dyspnea.
DATA:
CXR, 07/26/2023:
IMPRESSION:
1. New moderate size left lower lobe airspace consolidation suggesting LEFT LOWER LOBE PNEUMONIA with an adjacent small left parapneumonic pleural effusion.
2. Minimal right pleural effusion and mild right lower lobe airspace opacity.
3. Moderate cardiomegaly suggesting a dilated cardiomyopathy.
Pericardiocentesis, 07/26/2023:
Conclusions:
1. Successful placement of a 6 Burkin[place] pericardial drain via apical approach.
2. Pericardial fluid has been sent for laboratory analysis.
TTE, 07/26/2023:
CONCLUSIONS
Limited, intraprocedural study.
Normal left ventricular systolic function.
Normal right ventricular size and function.
Normal atria.
Large pericardial effusion. Following pericardiocentesis, no pericardial
effusion has resolved.
Ascites is observed.
Compared to prior study from earlier today, the pericardial effusion is
re-demonstrated and resolved after pericardiocentesis.
Physical Exam
Vital Signs/Labs
Vital Signs
Temp Pulse Resp BP Pulse Ox
99.1 F 104 16 149/75 92
07/29/23 07:22 07/29/23 07:22 07/29/23 07:22 07/29/23 05:03 07/29/23 07:22
07/28/23 07/29/23 07/30/23
06:59 06:59 06:59
Actual Weight 82.6 kg 80.5 kg
07/29/23 05:08
07/29/23 05:08
07/26/23
07:08
[id number] Pept 953
Data Reviewed
-
Date of Service: July 29, 2023
[2023-07-29] MEDS: VIBRAMYCIN 100 MG PO ×2 (09:32→20:09)
[2023-07-29] MEDS: METAMUCIL, KONSYL 1 PACKET PO (09:32)
[2023-07-29] MEDS: COLACE 100 MG PO ×2 (09:32→20:09)
[2023-07-29] MEDS: PROTONIX 40 MG PO (09:33)
[2023-07-29] MEDS: COLCHICINE 0.599999999999999978 MG PO ×2 (09:33→20:20)
[2023-07-29] MEDS: COMBIGAN EYE DROPS 1 DROP BOTH EYES ×2 (10:09→20:10)
[2023-07-29] MEDS: NON-FORMULARY ITEM 1 DROP BOTH EYES (10:09)
[2023-07-29] MEDS: ROCEPHIN 1000 MG IV (10:10)
[2023-07-29] MEDS: STERILE WATER FOR INJECTION 10 ML IV (10:10)
[2023-07-29] MEDS: NIZORAL 2% CREAM TOPICAL (10:11)
--- NOTE | 2023-07-29 13:35 | CM ---
Chart reviewed. Patient is independent of ADLS, lives with his in a [address], [facility], ambulates outside the home with a walking stick. Patient asking for a rolling walker. Notified hospitalist. PT/OT evaluation recommending SNF. I spoke with
the patient and his and they are requesting [facility] and [facility]. Both facilities convenient for patient's . Referrals sent. Waiting on discharge and bed availability. Plan is for the patient to go to SNF when medically stable for
discharge. CM to follow
--- NOTE | 2023-07-29 16:26 | W.PN.HOSP.TC ---
Today's Communication/Plan
-
continue to hold Eliquis
f/u with Dr. Wilkerson post dc
Assessment / Plan
Assessment / Plan
#Acute pericardial effusion/tamponade phenomenon/Pericarditis
Status post pericardiocentesis with 610 cc of fluid was removed by Dr. Craig
Pericardial drain placed, removed
Call placed and discussed with Dr. Daniel Wilkerson (rheumatology), pt will follow up in his office post dc for possible PMR
Potential dc to SNF tomorrow pending CM dispo
Lyme studies Neg
ESR 75 and CRP 167.9
Blood cultures NGTD
Lactic acid normal
Troponin checked negative x 2
TSH wnl.
RF factor Neg and POLINA neg
Fluid culture NGTD
fungal neg
cytology pending
Can consider CT chest/US chest to assess pleural effusion if with sob
Monitor oxygenation vital signs closely
Avoid hypotension
Pain control
Started on colchicine 0.6mg BID and aspirin high dose with taper regimen. PPI added.
Cardiology recs
07/27 Echo: Limited echo s/p pericardiocentesis on 07/26/2023.
At most trivial pericardial effusion.
Pleural effusion present.
Mild to moderate aortic stenosis.
Normal left ventricular systolic function.
No significant change since the prior limited study of 07/26/2023.
#Left lower lobe community-acquired pneumonia
Started patient on ceftriaxone and doxycycline (Lyme studies negative)
Sputum sample
strep pneumoniae antigen-negative.
Paroxysmal atrial fibrillation
Eliquis on hold. Restart pending as per cardiology if no recurrent effusion
Monitor on telemetry
CAD
Aortic stenosis
Continue with statin
Aspirin and Eliquis on hold
Continue with lisinopril
BPH
Continue with home meds
DVT ppx-scds for now
Anticipated Discharge: Within 24 hours
Subjective/Interval History
-
Date of Service: July 29, 2023
Chronic muscle and joint pain
Objective Data
-
Labs:
Laboratory Results
07/29/23
05:08
WBC 12.9 H
Hgb 11.9 L
Hct 35.2 L
Plt Count 296
Sodium 131 L
Potassium 4.1
Chloride 100
Carbon Dioxide 25
BUN 13
Creatinine 0.8
Glucose 123 H
Calcium 8.4
Vital Signs:
Vital Signs
Temp Pulse Resp BP Pulse Ox
99.6 F 105 16 149/73 93
07/29/23 16:13 07/29/23 16:13 07/29/23 16:13 07/29/23 07:22 07/29/23 16:13
I&O
07/28/23 07/29/23 07/30/23
06:59 06:59 06:59
Intake Total 480 / 480
Output Total 0 / 0 1625 / 1625 400 / 400
Balance 480 / 480 -1625 / -1625 -400 / -400
Review of Systems
-
History Source: Patient and Family ( at bedside)
Constitutional: Denies Fever
Respiratory: Denies No Symptoms
Cardiac: Reports Chest Pain (with deep inspirations)
Abdomen/GI: Reports No Symptoms
Physical Exam
-
General: Well Developed, Well Nourished and No Apparent Distress
HEENT: Normocephalic, Atraumatic and Moist Mucous Membranes
Respiratory: Clear to Auscultation; Negative Wheezes, Rales or Rhonchi
Cardiac: Regular Rhythm, S1/S2, Rub and Other (pericardial drain no longer in place)
GI: Soft, Nontender and Nondistended
Musculoskeletal: No Clubbing, No Cyanosis and No Edema
Neuro: Awake, Alert and Oriented
[2023-07-29] MEDS: FLOMAX 0.400000000000000022 MG PO (18:04)
[2023-07-29] MEDS: LIPITOR 40 MG PO (18:04)
[2023-07-29] MEDS: ZESTRIL 5 MG PO (18:26)
[2023-07-29] MEDS: MILK OF MAGNESIA 30 ML PO (18:26)
[2023-07-29] MEDS: XALATAN OPHTHALMIC SOLUTION 1 DROP BOTH EYES (21:21)
--- NOTE | 2023-07-29 22:00 | PTCARENOTE ---
Addendum entered by Forest Rodriguez RN 07/29/23 23:15:
Pt desaturates to high 70's for a few seconds and comes back to the low 90's when sleeping. Pt was place on 2L HS. SaO2 96%
Original Note:
Assume care from AM RN. VSS. Afebrile and no c/o pain. AAOx3, forgetful at times. [place]. Gen Weakness. NSR to ST in the tele monitor. +2 BLLE edema. Murmur. Lung sounds are diminished with fine crackles at the bases, SaO2 93-95% RA. Shallow breathing
and dyspneic w/ exertion. nonproductive moist cough. Abd round and obese. Pt c/o constipation, stool softener given. #25 CC administer for frequent urination. Pt appears comfortable in bed and call lubin within reach.
[2023-07-30 03:48] VITALS: BMI 25.1
[2023-07-30 04:32] VITALS: BP 146/63
[2023-07-30 07:39] VITALS: BP 157/78
[2023-07-30] MEDS: VIBRAMYCIN 100 MG PO (08:30)
[2023-07-30] MEDS: METAMUCIL, KONSYL 1 PACKET PO (08:30)
[2023-07-30] MEDS: PROTONIX 40 MG PO (08:31)
[2023-07-30] MEDS: COLCHICINE 0.599999999999999978 MG PO (08:31)
[2023-07-30] MEDS: COLACE 100 MG PO (08:31)
[2023-07-30] MEDS: NIZORAL 2% CREAM 1 APPLIC TOPICAL (08:32)
[2023-07-30] MEDS: COMBIGAN EYE DROPS 1 DROP BOTH EYES (08:32)
[2023-07-30] MEDS: NON-FORMULARY ITEM 1 DROP BOTH EYES (08:33)
[2023-07-30] MEDS: STERILE WATER FOR INJECTION 10 ML IV (08:34)
[2023-07-30] MEDS: ROCEPHIN 1000 MG IV (08:34)
[2023-07-30 08:39] VITALS: BP 160/85; PULSE 106; PULSE 122; O2SAT 94
--- NOTE | 2023-07-30 10:28 | W.PN.HOSP.TC ---
Today's Communication/Plan
-
DC to [facility]
Assessment / Plan
Assessment / Plan
#Acute pericardial effusion/tamponade phenomenon/Pericarditis
Status post pericardiocentesis with 610 cc of fluid was removed by Dr. Craig
Pericardial drain placed, removed
Call placed and discussed with Dr. Daniel Wilkerson (rheumatology), pt will follow up in his office post dc for possible PMR
Potential dc to SNF tomorrow pending CM dispo
Lyme studies Neg
ESR 75 and CRP 167.9
Blood cultures NGTD
Lactic acid normal
Troponin checked negative x 2
TSH wnl.
RF factor Neg and POLINA neg
Fluid culture NGTD
fungal neg
cytology pending
Can consider CT chest/US chest to assess pleural effusion if with sob
Monitor oxygenation vital signs closely
Avoid hypotension
Pain control
Started on colchicine 0.6mg BID and aspirin high dose with taper regimen. PPI added.
Cardiology recs
07/27 Echo: Limited echo s/p pericardiocentesis on 07/26/2023.
At most trivial pericardial effusion.
Pleural effusion present.
Mild to moderate aortic stenosis.
Normal left ventricular systolic function.
No significant change since the prior limited study of 07/26/2023.
#Left lower lobe community-acquired pneumonia
Started patient on ceftriaxone and doxycycline (Lyme studies negative)
Sputum sample
strep pneumoniae antigen-negative.
Paroxysmal atrial fibrillation
Eliquis on hold. Restart pending as per cardiology if no recurrent effusion
Monitor on telemetry
CAD
Aortic stenosis
Continue with statin
Aspirin and Eliquis on hold, with plan to do echo in 2 weeks and then to potentially resume Eliquis, will hold on ASA as per Dr. Johnston
Continue with lisinopril
BPH
DVT ppx-scds for now
dc to SNF ([facility]) today
reviewed with at bedside
reviewed with Dr. Johnston and Dr. Wilkerson
More than 30 minutes spent in discharge including
Final examination of the patient
Summarizing hospital stay
Instructions for continuing care to all relevant caregivers
Preparation of discharge records, prescriptions, and referral forms
Total time spent (in minutes): 45
Anticipated Discharge: Today
Subjective/Interval History
-
Date of Service: July 30, 2023
In good spirits, no chest pain today
Objective Data
-
Vital Signs:
Vital Signs
Temp Pulse Resp BP Pulse Ox
98.8 F 102 20 157/78 96
07/30/23 07:37 07/30/23 08:21 07/30/23 07:37 07/30/23 07:39 07/30/23 07:39
I&O
07/29/23 07/30/23 07/31/23
06:59 06:59 06:59
Intake Total 840 / 840
Output Total 1625 / 1625 1900 / 1900
Balance -1625 / -1625 -1060 / -1060
Review of Systems
-
History Source: Patient and Family ( at bedside)
Constitutional: Denies Fever
Respiratory: Denies No Symptoms
Cardiac: Reports Chest Pain (resolved, even with deep inspirations)
Abdomen/GI: Reports No Symptoms
Musculoskeletal: Reports Joint Pain, Arthralgias and Myalgias
Physical Exam
-
General: Well Developed, Well Nourished and No Apparent Distress
HEENT: Normocephalic, Atraumatic and Moist Mucous Membranes
Respiratory: Clear to Auscultation; Negative Wheezes, Rales or Rhonchi
Cardiac: Regular Rhythm, S1/S2, Rub and Other (pericardial drain no longer in place)
GI: Soft, Nontender and Nondistended
Musculoskeletal: No Clubbing, No Cyanosis and No Edema
Neuro: Awake, Alert and Oriented
--- NOTE | 2023-07-30 10:46 | PTCARENOTE ---
Assumed care of pt from night RN. Pt received awake and alert, Ox3. VSS, CM shows SR/ST 90's, POX 98% on 2 liters, O2 d/c'd and POX 96% on RA. Left thorax site from pleural drains remains CDI. For tsf to [facility] later today.
--- NOTE | 2023-07-30 11:11 | W.PN.CD ---
Today's Communication / Plan
-
Colchicine for pericarditis.
Steroids (prednisone 15 mg daily) at the discretion of hospitalist. Likely deferral to outpatient rheumatology.
Repeat TTE in 2 weeks. If effusion remains resolved and no evidence of malignancy on cytology, restart apixaban.
Impression / Plan
-
Impression/Plan: 88 y/o male with mild aortic stenosis, HLD, PAF on apixaban admitted with large pericardial effusion and early tamponade.
#Pericarditis with pericardial effusion and tamponade
-CRP 167, ESR 75, with transaminitis and mild leukocytosis.
-Pericardial drain placed with 610mL burgundy-colored fluid.
-Cytology is pending.
-Continue colchicine 0.6 mg BID x 3 months.
-Drain d/c'ed after repeat TTE showed sustained resolution off effusion and minimal output in vacutainer.
-Pathology is pending.
-Plan echo in 2 weeks (sooner if clinical concerns arise) and then resume Eliquis if no recurrent effusion (and pathology of fluid negative for cancer).
-NSAID stopped (high dose ASA in light of BRBPR of uncertain etiology).
#Joint pain - Suspicious for PMR
-Elevated inflammatory markers. Difficult to discern if related in the context of pericarditis.
-Agree with checking Lyme titres.
-DDx will also include autoimmune processes (late in life for RA/SLE, no malar rash, etc). Given his age, polymyalgia rheumatica is a real possibility.
-RF/POLINA pending.
-One diagnostic criteria of PMR is response to steroids (prednisone 15 mg daily), though this would adversely affect his pericarditis (much higher rate of relapse). If steroids were to become chronic, this may be a moot point.
-For PMR most pt are off steroids in 6 months.
-Rare case reports of pericardial effusion and tamponade associated with PMR.
-Low dose steroids if PMR is HIGHLY Suspected - though this must be balanced with the increased risk of pericarditis relapse with steroids (though this is often in the absence of colchicine).
#Sinus tach
-If needed could try low dose BB but sinus tach is likely related to medical illness and so therapy is directed at underlying process metoprolol 25 mg daily.
#LLL PNA suggested by CXR, per hospitalist
#New BRBPR/Hematochezia, possibly hemorrhoidal.
#Transaminitis, some improvement; suspect this was congestive hepatopathy from the tamponade.
#Paroxysmal atrial fibrillation
-Currently in NSR/sinus tach
-Beta-uzma has been avoided for concern for potential bradycardia. HR consistently in the 80-110's.
-[id number]: score at least 4 (HTN, age 75 or more, Vascular disease).
-Oral Anticoagulation: Apixaban 5 mg twice daily on hold in the setting pericardial tamponade.
#Hypertension
#Aortic stenosis
#Chronic stable anginae
#Mixed hyperlipidemia
Subjective/Interval History:
Doing well.
Hospitalist planning to send to rehab.
DATA:
CXR, 07/26/2023:
IMPRESSION:
1. New moderate size left lower lobe airspace consolidation suggesting LEFT LOWER LOBE PNEUMONIA with an adjacent small left parapneumonic pleural effusion.
2. Minimal right pleural effusion and mild right lower lobe airspace opacity.
3. Moderate cardiomegaly suggesting a dilated cardiomyopathy.
Pericardiocentesis, 07/26/2023:
Conclusions:
1. Successful placement of a 6 Serbian pericardial drain via apical approach.
2. Pericardial fluid has been sent for laboratory analysis.
TTE, 07/26/2023:
CONCLUSIONS
Limited, intraprocedural study.
Normal left ventricular systolic function.
Normal right ventricular size and function.
Normal atria.
Large pericardial effusion. Following pericardiocentesis, no pericardial
effusion has resolved.
Ascites is observed.
Compared to prior study from earlier today, the pericardial effusion is
re-demonstrated and resolved after pericardiocentesis.
Physical Exam
Vital Signs/Labs
Vital Signs
Temp Pulse Resp BP Pulse Ox
37.1 C 102 20 157/78 96
07/30/23 07:37 07/30/23 08:21 07/30/23 07:37 07/30/23 07:39 07/30/23 10:36
07/28/23 07/29/23 07/30/23
11:59 11:59 11:59
Actual Weight 82.6 kg 80.5 kg 79.5 kg
07/29/23 05:08
07/29/23 05:08
07/26/23
07:08
[id number] Pept 953
Physical Exam
Constitutional: No acute distress and Comfortable
EENT: Anicteric and Moist mucous membranes
Cardiovascular: Rhythm & rate is regular, Pedal edema is absent, JVD pressure is normal, S1S2 is normal and Murmur/rub/gallop absent
Respiratory: Respiratory effort normal, Lungs clear to auscul., Wheeze Absent, Crackles Absent and Rhonchi Absent
GI: Soft, Distention absent, Flat, Non tender and Normal bowel sounds
Neuro/Psych: AO x 3
Data Reviewed
-
Date of Service: July 30, 2023
Medical Decision Making: External Notes, Tests Ordered, Independent Historian Assessment and Test Interpretation
EKG: Tracing Personally Visualized and interpreted and Report Reviewed by me
Echo: Tracing Personally Visualized and interpreted and Report Reviewed by me
X-Ray/CT/US/MRI/NUC/PET: Image Personally Visualized and interpreted and Report Reviewed by me
Medical Tests (PFT, Pathology etc): Image Personally Visualized and interpreted and Report Reviewed by me
Labs: Labs Reviewed by me
[2023-07-30 12:28] VITALS: BP 126/74
--- NOTE | 2023-07-30 14:17 | PTCARENOTE ---
Report given to CECE Carlin at [facility], all paperwork and eye drops sent with spouse. Pt driven to [facility] by spouse.
--- NOTE | 2023-07-30 17:35 | W.DS.TRANS ---
DC Summary - Nursery Attendant
-
Discharge Instructions:
Sleep Apnea Risk Low
Discharge Diagnosis/Procedures Pericarditis
Diet Regular
Activity With assistance
Driving Restrictions No driving
Bathing Restrictions None
Blood Work CBC, CMP, ESR, CRP in 1 week
Instructions:
Stand-Alone Forms:
Changes to Home Medications: Yes
Discharge Medications:
DC Medications w/original date entered in [email or web address]
tamsulosin 0.4 mg capsule 0.4 mg PO QPM Urinary Issue 04/21/14
[place]-3 Fatty Acids/Fish Oil 2 - 4 capsules PO DAILY Supplement 10/21/16
atorvastatin 40 mg tablet 40 mg PO QPM High Cholesterol 10/21/16
brimonidine 0.2 %-timolol 0.5 % eye drops (Combigan) 1 drp BOTH EYES BID Eye Condition 10/21/16
ketoconazole 2 % topical cream 1 applic TP DAILY FEET 10/21/16
latanoprost 0.005 % eye drops 1 drp BOTH EYES HS Eye Condition 10/21/16
lisinopril 5 mg tablet 5 mg PO QPM Blood Pressure 10/21/16
loteprednol etabonate 0.5 % eye gel drops (Lotemax) 1 drp BOTH EYES DAILY Eye Condition 10/21/16
metronidazole 0.75 % topical cream (MetroCream) 1 applic topical BIDPRN PRN ROSACEA 10/21/16
psyllium husk (aspartame) 3.4 gram oral powder packet (Metamucil Fiber Singles) 1 packet PO DAILY Constipation 10/21/16
cefuroxime axetil 500 mg tablet 500 mg PO BID 7 days #14 tabs 07/30/23
colchicine 0.6 mg tablet 0.6 mg PO BID pericarditis #180 tabs 07/30/23
docusate sodium 100 mg capsule 100 mg PO BID #30 caps 07/30/23
doxycycline hyclate 100 mg capsule 100 mg PO Q12 #10 caps 07/30/23
magnesium hydroxide 400 mg/5 mL oral suspension 30 ml PO QIDPRN PRN constipation #355 mL 07/30/23
melatonin 5 mg tablet 5 mg PO HS PRN insomnia #30 tabs 07/30/23
polyethylene glycol 3350 17 gram oral powder packet (HealthyLax) 17 g PO DAILYPRN PRN constipation #30 ea 07/30/23
Home Medication Changes
Colchicine bid for 90 days
Ceftin and Doxycycline for short term
Pending Results: Yes
Additional Pending Results:
pericardial fluid cytology
== END 2023-07-30 14:18 | DRG 314 ==
LOC: IVU 11:38
PROVIDERS: Hospitalist; Nurse Practitioner; Nurse Practitioner Family; ADMITTING PHYSICIAN Internal Medicine Cardiovascular Disease; ATTENDING PHYSICIAN Internal Medicine; CONSULT PHYSICIAN Internal Medicine Cardiovascular Disease; EMERGENCY PHYSICIAN Emergency Medicine; FAMILY PHYSICIAN Family Medicine
PROC: 0W9D30Z Drainage of Pericardial Cavity with Drainage Device, Percutaneous Approach (ICD-10-PCS; 2023-07-26)
DX: I30.9 Acute pericarditis, unspecified (principal); J18.9 Pneumonia, unspecified organism; D68.9 Coagulation defect, unspecified; I42.0 Dilated cardiomyopathy; J91.8 Pleural effusion in other conditions classified elsewhere; K92.1 Melena; I31.4 Cardiac tamponade; I48.0 Paroxysmal atrial fibrillation; I12.9 Hypertensive chronic kidney disease with stage 1 through stage 4 chronic kidney disease, or unspecified chronic kidney disease; N18.31 Chronic kidney disease, stage 3a; E78.2 Mixed hyperlipidemia; M35.3 Polymyalgia rheumatica; R74.01 Elevation of levels of liver transaminase levels; I25.118 Atherosclerotic heart disease of native coronary artery with other forms of angina pectoris; I35.0 Nonrheumatic aortic (valve) stenosis; N40.0 Benign prostatic hyperplasia without lower urinary tract symptoms; Z11.52 Encounter for screening for COVID-19; Z79.01 Long term (current) use of anticoagulants; Z88.2 Allergy status to sulfonamides
CPT/HCPCS: 88305; 93308; 33016; 71046; 80048; 80053; 81003; 82945; 83605; 83615; 83880; 84157; 84443; 84484; 85014; 85025; 85652; 86038; 86140; 86430; 86618; 87015; 87040; 87070; 87102; 87116; 87205; 87206; 87502; 87811; 87899; 88112; 89051; 93005; 93306; 93321; 93325; 96365; 96375; 97163; 97166; 99285

== ENCOUNTER → 2023-08-05 12:51 | Outpatient (REF) | payer OTHER, MEDICARE, SELFPAY ==
[2023-08-05 13:46] LABS: % Basophils 0.4 % (0-2); % Eosinophils 0.4 % (0-6); % Immature Granulocytes 0.3 % (0-0.5); % Lymphocytes 14.9 % (20.5-51.1); % Monocytes 17.8 % (1.7-9.3); % Neutrophils 66.2 % (42.2-75.2); Absolute Lymphocytes 1.5 10^3/uL (1.2-3.4); Absolute Monocytes 1.8 10^3/uL (0.1-0.6); Absolute Neutrophils 6.8 10^3/uL (1.4-6.5); Hemoglobin 12.8 g/dL (13.0-18.0); Mean Corp Hgb Conc. 33.7 g/dL (33.0-37.0); Mean Corpuscular Hgb 29.4 pg (27.0-31.0); Mean Corpuscular Volume 87.2 fL (80.0-94.0); Mean Platelet Volume 11.1 fL (7.4-10.4); Nucleated Red Blood Cells % 0 % (-); Platelet Count 325 10^3/uL (130-400); Red Blood Cell Count 4.36 10^6/uL (4.70-6.10); Red Cell Dist. Width 13.2 % (11.5-14.5); White Blood Cell Count 10.2 10^3/uL (4.8-10.8)
[2023-08-05 13:57] LABS: Erythrocyte Sed Rate 66 mm/hour (0-20)
[2023-08-05 14:00] LABS: ALT (SGPT) 62 U/L (0-50); AST (SGOT) 58 U/L (17-59); Albumin 3.6 g/dl (3.5-5.0); Alkaline Phosphatase 124 U/L (38-126); Blood Urea Nitrogen 19 mg/dl (9-20); Calcium 9.1 mg/dl (8.4-10.2); Carbon Dioxide 27 mmol/L (22-30); Chloride 100 mmol/L (98-107); Glucose 100 mg/dl (70-99); Potassium 4.7 mmol/L (3.5-5.1); Sodium 136 mmol/L (135-145); Total Bilirubin 0.6 mg/dl (0.2-1.3); Total Protein 6.9 g/dl (6.3-8.2); eGFR > 60.00
== END ==
LOC: OLABP 12:51
PROVIDERS: ATTENDING PHYSICIAN Family Medicine
DX: I30.9 Acute pericarditis, unspecified (principal); J90 Pleural effusion, not elsewhere classified; J18.9 Pneumonia, unspecified organism; M62.81 Muscle weakness (generalized); I48.0 Paroxysmal atrial fibrillation; I13.10 Hypertensive heart and chronic kidney disease without heart failure, with stage 1 through stage 4 chronic kidney disease, or unspecified chronic kidney disease; N18.30 Chronic kidney disease, stage 3 unspecified; I25.10 Atherosclerotic heart disease of native coronary artery without angina pectoris; I35.0 Nonrheumatic aortic (valve) stenosis
CPT/HCPCS: 36415; 80053; 85025; 85652; 86140

== ENCOUNTER → 2023-08-11 10:58 | Outpatient (REF) | payer MEDICARE, OTHER, SELFPAY | LOC: HWRCS 10:58 | PROVIDERS: ATTENDING PHYSICIAN Internal Medicine Cardiovascular Disease; FAMILY PHYSICIAN Family Medicine | DX: I31.39 Other pericardial effusion (noninflammatory) (principal); R06.02 Shortness of breath | CPT/HCPCS: 93308 ==

== ENCOUNTER → 2023-08-18 11:19 | Outpatient (REF) | payer MEDICARE, OTHER, SELFPAY | LOC: RCS 11:19 | PROVIDERS: ATTENDING PHYSICIAN Nurse Practitioner; FAMILY PHYSICIAN Family Medicine | DX: I48.0 Paroxysmal atrial fibrillation (principal); I31.39 Other pericardial effusion (noninflammatory); J90 Pleural effusion, not elsewhere classified; R06.09 Other forms of dyspnea | CPT/HCPCS: 93308; 71046; 93321; 93325 ==

== ENCOUNTER → 2023-12-19 10:26 | Outpatient (REF) | payer MEDICARE, OTHER, SELFPAY | LOC: RCS 10:26 | PROVIDERS: ATTENDING PHYSICIAN Internal Medicine Cardiovascular Disease; FAMILY PHYSICIAN Family Medicine | DX: I48.0 Paroxysmal atrial fibrillation (principal); I31.39 Other pericardial effusion (noninflammatory) | CPT/HCPCS: 93306 ==

== ENCOUNTER → 2024-07-20 14:43 | Outpatient (REF) | payer MEDICARE, OTHER, SELFPAY | LOC: DHSLP 14:43 | PROVIDERS: ATTENDING PHYSICIAN Family Medicine | DX: G47.33 Obstructive sleep apnea (adult) (pediatric) (principal) | CPT/HCPCS: 95806 ==

== ENCOUNTER → 2024-07-24 09:59 | Outpatient (REF) | payer MEDICARE, OTHER, SELFPAY ==
[2024-07-24 10:56] LABS: Hemoglobin 12.9 g/dL (13.0-18.0); Mean Corp Hgb Conc. 33.9 g/dL (33.0-37.0); Mean Corpuscular Hgb 30.1 pg (27.0-31.0); Mean Corpuscular Volume 88.6 fL (80.0-94.0); Mean Platelet Volume 10.3 fL (7.4-10.4); Platelet Count 168 10^3/uL (130-400); Red Blood Cell Count 4.29 10^6/uL (4.70-6.10); Red Cell Dist. Width 13.7 % (11.5-14.5); White Blood Cell Count 11.5 10^3/uL (4.8-10.8)
[2024-07-24 11:04] LABS: Erythrocyte Sed Rate 43 mm/hour (0-20)
[2024-07-24 11:17] LABS: Absolute Neutrophils -Man Diff 8.2 10^3/uL (1.4-6.5); Band Neutrophils 0 % (0-3); Lymphocytes 9 % (20-51); Monocytes 19 % (2-9); Normal RBC Morphology Yes; Platelets Checked Yes; Segmented Neutrophils 72 % (42-75); Total Cells Counted 100
[2024-07-24 11:39] LABS: ALT (SGPT) 22 U/L (0-50); AST (SGOT) 20 U/L (17-59); Albumin 3.3 g/dl (3.5-5.0); Alkaline Phosphatase 68 U/L (38-126); Blood Urea Nitrogen 15 mg/dl (9-20); Calcium 8.6 mg/dl (8.4-10.2); Carbon Dioxide 24 mmol/L (22-30); Chloride 103 mmol/L (98-107); Glucose 109 mg/dl (70-99); Potassium 4.1 mmol/L (3.5-5.1); Sodium 134 mmol/L (135-145); Total Bilirubin 1.3 mg/dl (0.2-1.3); Total Protein 5.9 g/dl (6.3-8.2); eGFR > 60.00
[2024-07-26 14:12] LABS: Rheumatoid Agglutinin Less Than 10 IU (<10 IU)
[2024-07-27 00:12] LABS: Free Lambda Light Chains,Quant 13.43 mg/L (5.71-26.30); Kappa/Lambda Fr Light Ratio 0.93 (0.26-1.65)
== END ==
LOC: RAD 09:59
PROVIDERS: ATTENDING PHYSICIAN Internal Medicine; FAMILY PHYSICIAN Family Medicine
DX: M25.50 Pain in unspecified joint (principal); R70.0 Elevated erythrocyte sedimentation rate
CPT/HCPCS: 36415; 73130; 80053; 83521; 84155; 84165; 85025; 85652; 86140; 86430

== ENCOUNTER → 2025-03-04 12:34 | Outpatient (REF) | payer MEDICARE, OTHER, SELFPAY | LOC: RCS 12:34 | PROVIDERS: ATTENDING PHYSICIAN Internal Medicine Cardiovascular Disease; FAMILY PHYSICIAN Family Medicine | DX: I35.0 Nonrheumatic aortic (valve) stenosis (principal) | CPT/HCPCS: 93306 ==